=== PATIENT | male | born 1960 | race Two or more races ===

== ENCOUNTER 2022-01-25 18:51 | Emergency (ER) | payer SELFPAY ==
[~2022-01-25] VITALS: Ht 170.2 cm; Wt 120.0 kg
[2022-01-25 19:02] VITALS: BP 143/88
[2022-01-25] MEDS ORDERED: BACL5TAB2 PO (20:52)
[2022-01-25] MEDS ORDERED: KETOROLAC TROMETH 30 MG/ML 1ML VIAL IM ONE (21:00)
[2022-01-25] MEDS ORDERED: DexAMETHasone SOD PHOS 10MG/1ML VIAL INJ IM ONE (21:00)
[2022-01-25] MEDS ORDERED: GABA300C10 PO (21:01)
== END 2022-01-25 21:49 | disposition home or self-care (01) ==
LOC: ER 18:51
DX: M54.41 Lumbago with sciatica, right side (principal)
CPT/HCPCS: 96372; 99284; J1100; J1885

== ENCOUNTER 2023-10-23 13:07 | Inpatient (IN) | payer MEDICAID ==
[~2023-10-23] VITALS: Ht 167.6 cm; Wt 50.9 kg
[2023-10-23] MEDS: SODIUM CHLORIDE 0.9% 1,000 ML IV SCH (01:37)
[~2023-10-23 13:07] MED LIST: BACL5TAB2 PO; GABA-1250 PO
[2023-10-23 21:27] LABS: Basophils # (auto) 0.1 10 ^3/uL (0-0.2); Eosinophils # (auto) 0.7 10 ^3/uL (0-0.8); Hemoglobin 15.6 g/dL (13.5-17.5); Neutrophils # (auto) 5.8 10 ^3/uL (1.6-8.6)
[2023-10-23 21:30] LABS: Basophils % (auto) 0.7 % (0.0-2.0); Eosinophils % (auto) 6.4 % (0.0-7.0); Hematocrit 45.6 % (41.0-53.0); Lymphocytes % (auto) 28.6 % (10.0-50.0); Mean Corpuscular Hemoglobin 31.8 pg (28.0-32.0); Mean Corpuscular Hgb Conc. 34.1 g/dL (32.0-36.0); Mean Corpuscular Volume 93.2 fL (80.0-100.0); Monocytes % (auto) 9.5 % (0.0-12.0); Neutrophils % (auto) 54.8 % (37.0-80.0); Nucleated Red Blood Cells % 0.2 %; Red Blood Cells 4.89 10^6/uL (4.5-5.90); Red Cell Distribution Width 13.8 % (11.8-14.3); White Blood Cell 10.7 10^3/uL (4.4-10.8)
[2023-10-23] MEDS ORDERED: HYDROcodone-ACET 5/325MG TAB PO PRN (22:00)
[2023-10-23] MEDS ORDERED: MORPHINE SULFATE INJ 2 MG/ml SYRG IV PRN (22:00)
[2023-10-23] MEDS ORDERED: ONDANSETRON HCL 4 MG/2 ML VIAL IV PRN (22:00)
[2023-10-23] MEDS ORDERED: ACETAMINOPHEN 325 MG TAB PO PRN ×2 (22:00)
[2023-10-23 22:31] LABS: Alanine Aminotransferase 33 U/L (7-40); Albumin 4.1 g/dL (3.2-4.8); Alkaline Phosphatase 119 U/L (46-116); Anion Gap 4 (5-15); Aspartate Aminotransferase 40 U/L (13-40); Calcium 9.4 mg/dL (8.5-10.1); Carbon Dioxide 27 mmol/L (20-30); Chloride 105 mmol/L (98-107); Glucose 92 mg/dL (74-106); Potassium 4.5 mmol/L (3.5-5.1); Sodium 136 mmol/L (136-145)
[2023-10-23 22:32] LABS: Bilirubin, Total 0.7 mg/dL (0.2-1.0); Total Protein 7.5 g/dL (5.7-8.2)
[2023-10-23 22:37] LABS: Blood Urea Nitrogen < 5 mg/dL (9-23)
[2023-10-23 23:55] LABS: INR 0.95 (0.9-1.15); Partial Thromboplastin Time 27.6 SEC (24.5-34.5); Prothrombin Time 10.1 sec (9.3-11.8)
[2023-10-24] MEDS: NICOTINE 7MG/24HR TOPICAL PATCH TD ONE (01:46)
[2023-10-24 06:00] VITALS: O2SAT 95
[2023-10-24 07:00] LABS: Basophils # (auto) 0.1 10 ^3/uL (0-0.2); Basophils % (auto) 0.7 % (0.0-2.0); Eosinophils # (auto) 0.6 10 ^3/uL (0-0.8); Eosinophils % (auto) 5.4 % (0.0-7.0); Hemoglobin 15.5 g/dL (13.5-17.5); Lymphocytes # (auto) 2.5 10 ^3/uL (0.4-5.4); Lymphocytes % (auto) 23.5 % (10.0-50.0); Mean Corpuscular Hemoglobin 31.8 pg (28.0-32.0); Mean Corpuscular Hgb Conc. 33.6 g/dL (32.0-36.0); Mean Corpuscular Volume 94.5 fL (80.0-100.0); Monocytes % (auto) 9.8 % (0.0-12.0); Neutrophils # (auto) 6.4 10 ^3/uL (1.6-8.6); Neutrophils % (auto) 60.6 % (37.0-80.0); Nucleated Red Blood Cells % 0.1 %; Red Blood Cells 4.87 10^6/uL (4.5-5.90); White Blood Cell 10.6 10^3/uL (4.4-10.8)
[2023-10-24 07:14] LABS: Alanine Aminotransferase 30 U/L (7-40); Albumin 3.9 g/dL (3.2-4.8); Alkaline Phosphatase 120 U/L (46-116); Anion Gap 4 (5-15); Aspartate Aminotransferase 37 U/L (13-40); Calcium 9.2 mg/dL (8.5-10.1); Carbon Dioxide 28 mmol/L (20-30); Chloride 104 mmol/L (98-107); Glucose 96 mg/dL (74-106); Potassium 4.2 mmol/L (3.5-5.1); Sodium 136 mmol/L (136-145)
[2023-10-24 07:15] LABS: Bilirubin, Total 0.6 mg/dL (0.2-1.0); Total Protein 7.4 g/dL (5.7-8.2)
[2023-10-24 07:24] LABS: BUN/Creatinine Ratio 6.7 (10.0-20.0); Blood Urea Nitrogen < 5 mg/dL (9-23)
[2023-10-24] MEDS: ceFAZolin 1GM/50ML 50 ML IV ONE (07:43)
[2023-10-24] MEDS: LIDOCAINE W/ EPINEPHRINE 1% 20ML VIAL ONE (08:33)
[2023-10-24] MEDS ORDERED: SUGAMMADEX 200mg/2ml Vial (100MG/ML) IV ONE (08:53)
[2023-10-24] MEDS ORDERED: GLYCOPYRROLATE 0.2 MG/ML 1ML VIAL ONE (08:53)
[2023-10-24] MEDS ORDERED: LIDOCAINE 2% (LOCAL ANESTH.) PF 5ml SDV ONE (08:53)
[2023-10-24] MEDS ORDERED: PROPOFOL 10 MG/ML 20 ML IV ONE (08:53)
[2023-10-24] MEDS ORDERED: KETOROLAC TROMETH 30 MG/ML 1ML VIAL ONE (08:53)
[2023-10-24] MEDS ORDERED: ONDANSETRON HCL 4 MG/2 ML VIAL ONE (08:53)
[2023-10-24] MEDS ORDERED: DexAMETHasone SOD PHOS 10MG/1ML VIAL INJ ONE (08:53)
[2023-10-24] MEDS ORDERED: ROCURONIUM 10MG/ML 10ML VIAL IV ONE (08:53)
[2023-10-24] MEDS ORDERED: KETAMINE 50mg/ML 1ml syringe ONE (08:54)
[2023-10-24] MEDS ORDERED: fentaNYL CITRATE 100 MCG/2 ML VL ONE (08:54)
[2023-10-24 09:27] VITALS: PULSE 85; RESP 14; O2SAT 100
[2023-10-24] MEDS ORDERED: LABETALOL HCL 5 MG/ML 4ML SYRINGE IV PRN (09:45)
[2023-10-24] MEDS ORDERED: hydrALAZINE HCL 20 MG/ML VL IV PRN (09:45)
[2023-10-24] MEDS ORDERED: HYDROmorphone HCL 2 MG/ML VL/or syr IV PRN (09:45)
[2023-10-24] MEDS ORDERED: NALOXONE HCL 0.4 MG/ML VIAL IV PRN (09:45)
[2023-10-24] MEDS ORDERED: ePHEDrine SULFATE 50 MG/ML AMP IV PRN (09:45)
[2023-10-24] MEDS ORDERED: ONDANSETRON HCL 4 MG/2 ML VIAL IV PRN (09:45)
[2023-10-24] MEDS ORDERED: fentaNYL CITRATE 100 MCG/2 ML VL IV PRN (09:45)
[2023-10-24] MEDS ORDERED: FLUMAZENIL 0.1 MG/ML INJ 10ML MDV IV PRN (09:45)
[2023-10-24] MEDS: NICOTINE 7MG/24HR TOPICAL PATCH TD SCH (10:00)
[2023-10-24 17:00] VITALS: BP 126/71; PULSE 98; RESP 22; TEMP 98.2; O2SAT 96
[2023-10-24 18:22] VITALS: BP 117/83; PULSE 103; RESP 18; TEMP 97.7; O2SAT 96
[2023-10-24 21:00] VITALS: BP 126/75; PULSE 90; RESP 18; TEMP 97.5; O2SAT 97
[2023-10-25 05:00] VITALS: BP 136/85; PULSE 66; RESP 18; TEMP 98.2; O2SAT 99
[2023-10-25 08:00] VITALS: BP 126/77; PULSE 58; RESP 19; TEMP 98.1; O2SAT 99
[2023-10-25 08:52] VITALS: BP 126/77; PULSE 58; RESP 19; TEMP 98.1; O2SAT 99
[2023-10-25 13:00] VITALS: BP 137/74; PULSE 80; RESP 18; TEMP 97.9; O2SAT 97
[2023-10-25 15:24] VITALS: BP 137/74; PULSE 80; RESP 18; TEMP 97.9; O2SAT 97
== END 2023-10-25 16:00 | disposition home or self-care (01) | DRG 254 ==
LOC: ER 13:07 → OVERFLOW 22:07 → WEST WING 10-24 15:28
PROVIDERS: ADMIT Registered Nurse; ATTEND Nurse Practitioner Acute Care
PROC: 0DCP7ZZ Extirpation of Matter from Rectum, Via Natural or Artificial Opening (ICD-10-PCS; principal; 2023-10-24 08:57)
DX: T18.5XXA Foreign body in anus and rectum, initial encounter (principal); R64 Cachexia; F15.10 Other stimulant abuse, uncomplicated; F17.210 Nicotine dependence, cigarettes, uncomplicated; Z68.1 Body mass index [BMI] 19.9 or less, adult; Z59.02 Unsheltered homelessness; W44.8XXA Other foreign body entering into or through a natural orifice, initial encounter; Y93.89 Activity, other specified; Y92.89 Other specified places as the place of occurrence of the external cause; Y99.8 Other external cause status
CPT/HCPCS: 36415; 71045; 74018; 80053; 85025; 85610; 85730; 86850; 86900; 86901; 93306; G0378; J1100; J1885; J2001; J2405; J2704

== ENCOUNTER 2024-06-05 19:11 | Inpatient (IN) | payer MEDICAID ==
[~2024-06-05] VITALS: Ht 167.6 cm; Wt 52.2 kg
--- NOTE | 2024-06-05 20:15 | ED.PDOC ---
Musculoskeletal HPI Comments HPI: Poor Historian. 63-year-old male presents to emergency department for evaluation of right foot pain and swelling and oozing. Patient states that he had a trip and fall from a standing position on [place]. He landed on both knees. He has some minimal abrasion to bilateral knees. He said after the his right lower extremity [id number] started to develop redness and swelling and puffiness and pain with blistering and peeling of the skin and oozing of serosanguineous material. Pain is worse with ambulation. Patient admits to recent use of alcohol. Past Medcial History: Sciatica, Past Surgical History: Hernia repair, removal of foreign body in the rectum REVIEW OF SYSTEMS: CONSTITUTIONAL: Denies acute: fever, diaphoresis, chills, HEAD: Denies acute: headache, photophobia Eyes: Denies acute: Double vision, vision loss, eye pain, eye discharge. EARS: Denies acute: tinnitus, hearing loss, ear discharge, ear pain, THROAT: Denies acute: sore throat, swelling, difficulty swallowing , pain with swallowing, change in voice. NECK: Denies acute: neck pain, neck swelling, stiff neck. HEART: Denies acute : chest pain, palpitations, LUNGS: Denies acute: SOB, wheezing, cough, hemoptysis ABDOMEN: Denies acute: abdominal pain, Nausea, Vomiting, diarrhea, melena , hematemesis, hematochezia SKIN: Denies acute: itchiness. EXTREMITIES: Denies acute: calf pain, numbness, tingling, weakness, Denies acute: Low back pain. Neuro: Denies acute: focal neurological deficit, motor or sensory focal neurological deficit, tremors, seizure like activity, confusion, dizziness, change in mental status, loss of bowel or bladder function, cauda equina like symptoms. : Denies acute: dysuria, hematuria, flank pain, increase in urinary frequency. PSYCH: Denies acute: hallucination, suicidal ideation, homicidal ideation. PHYSICAL EXAM: General: no acute distress, awake and alert. Head: normocephalic, atraumatic. Neck: supple, trachea is midline, no swelling. Throat: Normal phonation. Eyes:, no erythema, no purulent discharge, no proptosis, no icterus. Heart: regular rate, regular rhythm, no significant murmur appreciated. Lungs: no apparent respiratory distress, Able to speak in full sentences. No wheezing, no rhonchi, no crackles. No stridors Clear to auscultation bilaterally. Abdomen: non tender to palpation, non distended, soft, no guarding, no rebound, + bowel sounds. Neuro: Awake, Alert, oriented to name, self, situation, follows commands GCS=15. Speech is normal. Skin: no petechia, no purpura, no cyanosis, non-pale, not jaundice. Lower extremities: -3/4 - Pitting edema no deformity, noted diffuse swelling [id number] and distally throughout his right lower extremity. There is tenderness to palpation. There is oozing and peeling of the skin. There is definitely erythema diffusely. Makes eye contact. moves all four extremities. Face: no apparent facial droop. Ambulating in the ED independently. Time Seen by MD: 20:10 Reviewed Notes: Nurses Notes, Allergies Allergies: Coded Allergies: NO KNOWN ALLERGIES (Unverified , 01/25/22) Home Meds Active Scripts Gabapentin (Gabapentin) 300 Mg Cap, 1 CAP PO TID PRN for 20 Days, #20 CAP 5 Refills Prov:DAWSON CAMARENA MD 01/25/22 Baclofen (Baclofen) 5 Mg Tab, 5 MG PO QHSP PRN for 20 Days, #20 TAB Prov:DAWSON CAMARENA MD 01/25/22 Information Source: Patient Location: Right Past Medical History PAST MEDICAL HISTORY: Denies Surgical History: Hernia Repair Family History Family History: Reviewed,noncontributory to illness, No family hx of Cancer, No family hx of DM, No family hx of Heart stephen, No family hx of HTN, No family hx ofKidney stephen, No family hx of Liver stephen, No family hx of Lung stephen, No family hx of Stroke Social History Smoker: Non-Smoker Alcohol: Denies ETOH Use Drugs: Methamphetamine Lives In: Home X-Ray, Labs, Meds, VS Vital Signs Date Time Temp Pulse Resp B/P (MAP) Pulse Ox O2 Delivery O2 Flow Rate FiO2 06/05/24 20:16 98.2 106 18 110/65 (80) 98 Lab Test 06/05/24 21:28 Range/Units White Blood Count 24.5 H 4.4-10.8 10^3/uL Red Blood Count 3.80 L 4.5-5.90 10^6/uL Hemoglobin 12.1 L 13.5-17.5 g/dL Hematocrit 35.4 L 41.0-53.0 % Mean Corpuscular Volume 93.3 80.0-100.0 fL Mean Corpuscular Hemoglobin 31.9 28.0-32.0 pg Mean Corpuscular Hemoglobin Concent 34.2 32.0-36.0 g/dL Red Cell Distribution Width 14.2 11.8-14.3 % Platelet Count 647 H 140-450 10^3/uL Mean Platelet Volume 7.3 6.9-10.8 fL Neutrophils (%) (Auto) 74.4 37.0-80.0 % Lymphocytes (%) (Auto) 16.1 10.0-50.0 % Monocytes (%) (Auto) 6.9 0.0-12.0 % Eosinophils (%) (Auto) 2.1 0.0-7.0 % Basophils (%) (Auto) 0.5 0.0-2.0 % Neutrophils # (Auto) 18.2 H 1.6-8.6 10 ^3/uL Lymphocytes # (Auto) 4.0 0.4-5.4 10 ^3/uL Monocytes # (Auto) 1.7 H 0-1.3 10 ^3/uL Eosinophils # (Auto) 0.5 0-0.8 10 ^3/uL Basophils # (Auto) 0.1 0-0.2 10 ^3/uL Nucleated Red Blood Cells 0.0 % Erythrocyte Sedimentation Rate 83 H 0-20 mm/hr Sodium Level 135 L 136-145 mmol/L Potassium Level 3.3 L 3.5-5.1 mmol/L Chloride Level 99 98-107 mmol/L Carbon Dioxide Level 29 20-31 mmol/L Anion Gap 7 5-15 Blood Urea Nitrogen 10 9-23 mg/dL Creatinine 0.75 0.700-1.30 mg/dL Glomerular Filtration Rate Calc 103 >90 mL/min BUN/Creatinine Ratio 13.3 10.0-20.0 Serum Glucose 112 H 74-106 mg/dL Lactic Acid Level 1.8 0.4-2.0 mmol/L Calcium Level 8.2 L 8.7-10.4 mg/dL Total Bilirubin 0.2 0.2-1.0 mg/dL Aspartate Amino Transferase (AST) 17 13-40 U/L Alanine Aminotransferase (ALT) 13 7-40 U/L Alkaline Phosphatase 128 H 46-116 U/L Troponin I High Sensitivity 3 L </=54 ng/L C-Reactive Protein High Sensitivity 13.50 H <1.0 mg/dL B-Type Natriuretic Peptide 73.84 0-100 pg/mL Total Protein 7.0 5.7-8.2 g/dL Albumin 3.1 L 3.2-4.8 g/dL RIGHT lower extremity venous duplex Clinical History: swelling Comparison: None Technique: Duplex Doppler evaluation of the deep venous systems of both lower extremities from the common femoral veins to the popliteal veins including color Doppler and spectral/pulsed waveform analysis was performed. Findings: RIGHT SIDE: The common femoral vein demonstrates appropriate compressibility and waveform variability. There is compressibility/patency of the great saphenous vein at the proximal thigh. The femoral vein demonstrates appropriate compressibility and waveform variability. The deep femoral vein demonstrates appropriate compressibility and waveform variability. The popliteal vein demonstrates appropriate compressibility and waveform variability. There is normal compressibility at the tibioperoneal trunk. Impression: 1. No right femoropopliteal venous thrombosis. 2. POSTERIOR TIBIAL VENOUS AREA NOT VISUALIZED DUE TO WOUND AND BANDAGING 3. LARGE LYMPH NODES IN THE RIGHT INGUINAL AREA MEASURING UP TO 2.7 CM 4. 3.3 CM AVASCULAR CYSTIC STRUCTURE IN THE RIGHT POPLITEAL REGION CONSISTENT WITH A ALVARADO'S CYST. Departure 1 Departure Time of Disposition: 22:00 Impression: Primary Impression: Cellulitis of right leg Additional Impressions: Leukocytosis Sepsis Disposition: ADMITTED INPATIENT Admit to: Tele Condition: Guarded Discharged With: Self I personally scribed for PRTAIK CANCHOLA DO ([email or web address]) on 06/06/24 at 01:20. Electronically submitted by Elias Ruffin ([email or web address]). PRATIK CANCHOLA DO Jun 05, 2024 20:15
[2024-06-05] MEDS ORDERED: VANCOMYCIN PER PHARMACY 0 MG IV SCH (20:30)
--- NOTE | 2024-06-05 21:22 | DVH ---
RIGHT lower extremity venous duplex Clinical History: swelling Comparison: None Technique: Duplex Doppler evaluation of the deep venous systems of both lower extremities from the common femora l veins to the popliteal veins including color Doppler and spectral/pulsed waveform analysis was perf ormed. Findings: RIGHT SIDE: The common femoral vein demonstrates appropriate compressibility and waveform variability. There is compressibility/patency of the great saphenous vein at the proximal thigh. The femoral vein demonstrates appropriate compressibility and waveform variability. The deep femoral vein demonstrates appropriate compressibility and waveform variability. The popliteal vein demonstrates appropriate compressibility and waveform variability. There is normal compressibility at the tibioperoneal trunk. Impression: 1. No right femoropopliteal venous thrombosis. 2. POSTERIOR TIBIAL VENOUS AREA NOT VISUALIZED DUE TO WOUND AND BANDAGING 3. LARGE LYMPH NODES IN THE RIGHT INGUINAL AREA MEASURING UP TO 2.7 CM 4. 3.3 CM AVASCULAR CYSTIC STRUCTURE IN THE RIGHT POPLITEAL REGION CONSISTENT WITH A ALVARADO'S CYST.
[2024-06-05 21:56] LABS: Basophils # (auto) 0.1 10 ^3/uL (0-0.2); Basophils % (auto) 0.5 % (0.0-2.0); Eosinophils # (auto) 0.5 10 ^3/uL (0-0.8); Eosinophils % (auto) 2.1 % (0.0-7.0); Hematocrit 35.4 % (41.0-53.0); Hemoglobin 12.1 g/dL (13.5-17.5); Lymphocytes % (auto) 16.1 % (10.0-50.0); Mean Corpuscular Hemoglobin 31.9 pg (28.0-32.0); Mean Corpuscular Hgb Conc. 34.2 g/dL (32.0-36.0); Mean Corpuscular Volume 93.3 fL (80.0-100.0); Monocytes # (auto) 1.7 10 ^3/uL (0-1.3); Monocytes % (auto) 6.9 % (0.0-12.0); Neutrophils # (auto) 18.2 10 ^3/uL (1.6-8.6); Neutrophils % (auto) 74.4 % (37.0-80.0); Platelet Count (auto) 647 10^3/uL (140-450); Red Cell Distribution Width 14.2 % (11.8-14.3); White Blood Cell 24.5 10^3/uL (4.4-10.8)
[2024-06-05 22:15] LABS: Alanine Aminotransferase 13 U/L (7-40); Anion Gap 7 (5-15); Aspartate Aminotransferase 17 U/L (13-40); BUN/Creatinine Ratio 13.3 (10.0-20.0); Blood Urea Nitrogen 10 mg/dL (9-23); Carbon Dioxide 29 mmol/L (20-31); Chloride 99 mmol/L (98-107)
[2024-06-05 22:23] LABS: Albumin 3.1 g/dL (3.2-4.8); Alkaline Phosphatase 128 U/L (46-116); Bilirubin, Total 0.2 mg/dL (0.2-1.0); Calcium 8.2 mg/dL (8.7-10.4); Glucose 112 mg/dL (74-106); Potassium 3.3 mmol/L (3.5-5.1); Sodium 135 mmol/L (136-145)
[2024-06-05 22:54] LABS: Erythrocyte Sedimentation Rate 83 mm/hr (0-20)
[2024-06-06] VITALS (8 sets, daily range): BP systolic 103–123; BP diastolic 51–69; PULSE 85–113; RESP 16–20; TEMP 97.6–98.4; O2SAT 94–98
[2024-06-06] MEDS: IOHEXOL 300 MG/ML 100ML BOTTLE IJ ONE (01:19)
[2024-06-06] MEDS: PIPERACILLIN-TAZOB 3.375GM 100 ML IV ONE (01:24)
--- NOTE | 2024-06-06 01:34 | DVH ---
Procedure: CT RT LOWER EXTREMITY W CON Reason for study/Clinical History: pain swelling infection Comparison Study: None available at time of dictation. CTA LOWER EXTREMITY RUNOFF WITH CONTRAST DATED 06/06/2024 12:43 AM Radiation Dose Information: CT Dose: CTDI volume is 8 mGy. Dose-length product is 505 mGy*cm TECHNIQUE: . 3D angiographic acquisitions of the right lower extremity was obtained during the intra venous administration of 140 cc of omnipaque without immediate adverse effect. Post processing, inclu ding maximum intensity projection, was performed images were reviewed on a PACS workstation. 3D postprocessing images were performed on a dedicated workstation and images were reviewed and inter preted for reporting. Findings/ IMPRESSION: No acute fracture or dislocation. Severe degenerative changes at the 1st metatarsophalangeal joint. Diffuse subcutaneous tissue fat stranding and soft tissue thickening from the level of the knee to th e dorsum of the foot. This is concerning for edema versus cellulitis. No focal fluid collection to suggest abscess. No abnormal enhancement. No obvious vascular abnormalities. No significant joint eff usions. All CT scans at this medical facility are performed using dose modulation techniques as appropriate t o a performed exam including the following: Automated exposure control was utilized; adjustment of th e MA and/or KV according to patient size; and use of iterative reconstruction technique.
[2024-06-06] MEDS ORDERED: DOCUSATE SOD 100 MG CAP PO PRN (03:00)
[2024-06-06] MEDS ORDERED: ONDANSETRON HCL 4 MG/2 ML VIAL IV PRN (03:00)
[2024-06-06] MEDS ORDERED: VANCOMYCIN PER PHARMACY 0 MG IV SCH (03:00)
[2024-06-06] MEDS: SODIUM CHLORIDE 0.9% 1,000 ML IV SCH (03:00)
[2024-06-06] MEDS ORDERED: ACETAMINOPHEN 325 MG TAB PO PRN (03:00)
[2024-06-06] MEDS: VANCOMYCIN 1GM/250ML KIT 250 ML IV ONE (03:20)
--- NOTE | 2024-06-06 03:59 | DVHHP2 ---
History of Present Illness Reason for Visit: Sepsis, unspecified organism History of Present Illness The patient is a 63-year-old male with past medical history of sciatica who presented to [facility] ED with complaint right foot pain and swelling. Patient reports he has been having increased right foot pain, oozing wound, fever, generalized weakness, had tripped and fall from standing position on May 27, 2024, landing bilateral knees, rating pain 7/10 numeric scale, getting worse that prompted this visit. Patient was seen and evaluated in the ED, laboratory data shows WBC 24.5, platelets 647, sodium 135, potassium 3.3, BUN 10, creatinine 0.75, GFR 103, glucose 112, calcium 8.2, ESR 83, CRP 13.50, BNP 73.84, blood pressure 109/52, heart rate 106, temperature 98.7 F, O2 saturation 98% on oxygen. Extremity venous study shows no right lower extremity venous thrombosis. Patient was started on IV antibiotic regimen vancomycin, ple ase see medication orders section in the computer. On my assessment, patient denies chest pain, no headache, no dizziness, no diaphoresis, no shortness of breath, no nausea, no vomiting, no fever, no chills. Patient was admitted for further evaluation and medical management. Past Medical History Sciatica, Past Surgical History Hernia repair Removal of foreign body in the rectum Family History Reviewed, noncontributory to the management of this case. Past Social History The patient lives at home, denies smoking, alcohol or illicit drugs abuse. Review of Systems Constitutional: Yes: Fever, Weakness; No: Chills, Sweats, Malaise, Other Eyes: No: Pain, Vision change, Conjunctivae inflammation, Eyelid inflammation, Other, Redness ENT: No: Ear pain, Ear discharge, Nose pain, Nose discharge, Nose congestion, Mouth pain, Mouth swelling, Throat pain, Throat swelling, Other Respiratory: No: Cough, Dry, Shortness of breath, SOB with excertion, Wheezing, Hemoptysis, Pleuritic Pain, Sputum, Wheezing, Other Cardiovascular: No: Chest Pain, Palpitations, Orthopnea, Paroxysmal Noc. Dyspnea, Edema, Lt Headedness, Other Gastrointestinal: No: Nausea, Vomiting, Abdominal Pain, Diarrhea, Constipation, Melena, Hematochezia, Other Genitourinary: No Dysuria, No Frequency, No Incontinence, No Hematuria, No Retention, No Other Musculoskeletal: No: other, neck pain, shoulder pain, arm pain, back pain, hand pain, leg pain, foot pain Skin: Other (Right lower extremity oozing wound); No: Rash, Lesions, Jaundice, Bruising Neurological: No: Weakness, Numbness, Incoordination, Change in speech, Confusion, Seizures, Other Allergies: Coded Allergies: NO KNOWN ALLERGIES (Unverified , 01/25/22) Medications Current Medications Medications Dose Ordered Sig/Beth Route Start Time Stop Time Status Last Admin Dose Admin Vancomycin HCl 0 ml @ 0 mls/hr UD IV 06/05/24 20:30 UNV Piperacillin Sod/ Tazobactam Sod 100 ml @ 25 mls/hr Q8HR IV 06/06/24 06:00 Sodium Chloride 1,000 ml @ 60 mls/hr [id number] IV 06/06/24 03:00 Acetaminophen/ Hydrocodone Bitart 1 tab Q4HP PRN PO 06/06/24 03:00 Ondansetron HCl 4 mg Q4HP PRN IV 06/06/24 03:00 Docusate Sodium 100 mg BIDPRN PRN PO 06/06/24 03:00 Enoxaparin Sodium 40 mg DAILY SC 06/06/24 10:00 Zinc Sulfate 220 mg DAILY PO 06/06/24 10:00 Ascorbic Acid 500 mg BID PO 06/06/24 10:00 Acetaminophen 650 mg Q6HP PRN PO 06/06/24 03:00 Morphine Sulfate 2 mg Q4HPRN PRN IV 06/06/24 03:00 Nitroglycerin 0.4 mg Q5MINP PRN SL 06/06/24 04:00 UNV Morphine Sulfate 2 mg Q30M PRN IV 06/06/24 04:00 UNV Exam Vital Signs Vital Signs Date Time Temp Pulse Resp B/P (MAP) Pulse Ox O2 Delivery O2 Flow Rate FiO2 06/06/24 01:44 98.7 113 18 136/39 (71) 98 98.7 06/06/24 01:17 Room Air* 0 21 General Appearance: Alert HEENT: EOMI, Mucous membr. moist/pink Respiratory: Clear to auscultation, Normal air movement Cardiovascular: Regular rate, Normal S1, Normal S2, No murmurs Abdominal: Normal bowel sounds, Soft, No tenderness, No hepatospenomegaly, No masses Extremities: No clubbing, No cyanosis, Normal pulses, Other (Right lower extremity swelling/tenderness) Skin: No rashes, No breakdown, No significant lesion Neuro: Normal speech, Normal tone, Sensation intact, Cranial nerves 3-12 NL, Reflexes 2+, Other (Generalized weakness) Psych/Mental Status: Mental status NL, Mood NL Labs/Xrays Labs Test 06/05/24 21:28 Range/Units White Blood Count 24.5 H 4.4-10.8 10^3/uL Red Blood Count 3.80 L 4.5-5.90 10^6/uL Hemoglobin 12.1 L 13.5-17.5 g/dL Hematocrit 35.4 L 41.0-53.0 % Mean Corpuscular Volume 93.3 80.0-100.0 fL Mean Corpuscular Hemoglobin 31.9 28.0-32.0 pg Mean Corpuscular Hemoglobin Concent 34.2 32.0-36.0 g/dL Red Cell Distribution Width 14.2 11.8-14.3 % Platelet Count 647 H 140-450 10^3/uL Mean Platelet Volume 7.3 6.9-10.8 fL Neutrophils (%) (Auto) 74.4 37.0-80.0 % Lymphocytes (%) (Auto) 16.1 10.0-50.0 % Monocytes (%) (Auto) 6.9 0.0-12.0 % Eosinophils (%) (Auto) 2.1 0.0-7.0 % Basophils (%) (Auto) 0.5 0.0-2.0 % Neutrophils # (Auto) 18.2 H 1.6-8.6 10 ^3/uL Lymphocytes # (Auto) 4.0 0.4-5.4 10 ^3/uL Monocytes # (Auto) 1.7 H 0-1.3 10 ^3/uL Eosinophils # (Auto) 0.5 0-0.8 10 ^3/uL Basophils # (Auto) 0.1 0-0.2 10 ^3/uL Nucleated Red Blood Cells 0.0 % Erythrocyte Sedimentation Rate 83 H 0-20 mm/hr Sodium Level 135 L 136-145 mmol/L Potassium Level 3.3 L 3.5-5.1 mmol/L Chloride Level 99 98-107 mmol/L Carbon Dioxide Level 29 20-31 mmol/L Anion Gap 7 5-15 Blood Urea Nitrogen 10 9-23 mg/dL Creatinine 0.75 0.700-1.30 mg/dL Glomerular Filtration Rate Calc 103 >90 mL/min BUN/Creatinine Ratio 13.3 10.0-20.0 Serum Glucose 112 H 74-106 mg/dL Lactic Acid Level 1.8 0.4-2.0 mmol/L Calcium Level 8.2 L 8.7-10.4 mg/dL Total Bilirubin 0.2 0.2-1.0 mg/dL Aspartate Amino Transferase (AST) 17 13-40 U/L Alanine Aminotransferase (ALT) 13 7-40 U/L Alkaline Phosphatase 128 H 46-116 U/L Troponin I High Sensitivity 3 L </=54 ng/L C-Reactive Protein High Sensitivity 13.50 H <1.0 mg/dL B-Type Natriuretic Peptide 73.84 0-100 pg/mL Total Protein 7.0 5.7-8.2 g/dL Albumin 3.1 L 3.2-4.8 g/dL PATIENT: KIKI NAVARRO ACCT: [id number] UNIT: [id number] : 1960 LOC: ER ROOM / BED: / AGE / SEX: 63 / M ADM STATUS: REG ER SERVICE 09 ORDERING PHYSICIAN: PRATIK CANCHOLA DO PROCEDURE(s): RLDVT - RT Lower DVT REASON: swelling ORDER NUMBER(s): [id number], ACCESSION NUMBER(s): [id number] RIGHT lower extremity venous duplex Clinical History: swelling Comparison: None Technique: Duplex Doppler evaluation of the deep venous systems of both lower extremities from the common femoral veins to the popliteal veins including color Doppler and spectral/pulsed waveform analysis was performed. Findings: RIGHT SIDE: The common femoral vein demonstrates appropriate compressibility and waveform variability. There is compressibility/patency of the great saphenous vein at the proximal thigh. The femoral vein demonstrates appropriate compressibility and waveform variability. The deep femoral vein demonstrates appropriate compressibility and waveform variability. The popliteal vein demonstrates appropriate compressibility and waveform variability. There is normal compressibility at the tibioperoneal trunk. Impression: 1. No right femoropopliteal venous thrombosis. 2. POSTERIOR TIBIAL VENOUS AREA NOT VISUALIZED DUE TO WOUND AND BANDAGING 3. LARGE LYMPH NODES IN THE RIGHT INGUINAL AREA MEASURING UP TO 2.7 CM 4. 3.3 CM AVASCULAR CYSTIC STRUCTURE IN THE RIGHT POPLITEAL REGION CONSISTENT WITH A ALVARADO'S CYST. ORDERING PHYSICIAN: PRATIK CANCHOLA DO PROCEDURE(s): RTLEXW - RT LOWER EXTREMITY W CON REASON: pain swelling infection ORDER NUMBER(s): [id number], ACCESSION NUMBER(s): [id number] Procedure: CT RT LOWER EXTREMITY W CON Reason for study/Clinical History: pain swelling infection Comparison Study: None available at time of dictation. CTA LOWER EXTREMITY RUNOFF WITH CONTRAST DATED 06/06/2024 12:43 AM Radiation Dose Information: CT Dose: CTDI volume is 8 mGy. Dose-length product is 505 mGy*cm TECHNIQUE: 3D angiographic acquisitions of the right lower extremity was obtained during the intravenous administration of 140 cc of omnipaque without immediate adverse effect. Post processing, including maximum intensity projection, was performed images were reviewed on a PACS workstation. 3 postprocessing images were performed on a dedicated workstation and images were reviewed and interpreted for reporting. Findings/ IMPRESSION: No acute fracture or dislocation. Severe degenerative changes at the 1st metatarsophalangeal joint. Diffuse subcutaneous tissue fat stranding and soft tissue thickening from the level of the knee to the dorsum of the foot. This is concerning for edema versus cellulitis. No focal fluid collection to suggest abscess. No abnormal enhancement. No obvious vascular abnormalities. No significant joint effusions. Assessment/Plan Assessment/Plan Cellulitis of right leg Hypokalemia Leukocytosis, unspecified Generalized weakness Sepsis, unspecified organisms Plan 1. Admit to med surge unit 2. Breathing treatment 3. Pain control management 4. IV antibiotic management 5. Management of fluids and electrolytes 6. Consultation for hospitalist/wound care 7. Diagnostic test extremity venous study 8. DVT prophylaxis-on Lovenox 9. Repeat labs CBC, CMP in a.m. 10. Home medication reviewed and reconciled 11. Continue with current medical management 12. Treatment plan discussed with patient and RN. Patient verbalized understanding. Plan discussed with: Patient, Other (RN) My Orders Orders - MARCUS COE DNP Procedure Category Date Status Time Piperacillin-Tazob PHA 06/06/24 In Process 3.375gm (Zosyn 3.375g 06:00 Complete Blood Count LAB 06/06/24 Logged 04:00 Comprehensive LAB 06/06/24 Logged Metabolic Panel 04:00 Allergies AFSHAN 06/06/24 In Process 02:51 Code Status CODE 06/06/24 Transmitted 02:51 Sodium Chloride 0.9% PHA 06/06/24 In Process 03:00 Oxygen Per Hour RT 06/06/24 Transmitted 02:51 Hydrocodone-Acet PHA 06/06/24 In Process 5/325mg Tab ([facility] 03:00 Ondansetron Hcl PHA 06/06/24 In Process (Zofran) 03:00 Docusate Sodium PHA 06/06/24 In Process Capsule (Colace 03:00 Enoxaparin Sodium PHA 06/06/24 In Process (Lovenox) 10:00 Zinc Sulfate PHA 06/06/24 In Process 10:00 Ascorbic Acid Tablet PHA 06/06/24 In Process (Vitamin C Tablet) 10:00 Complete Blood Count LAB 06/07/24 Verified 04:00 Comprehensive LAB 06/07/24 Verified Metabolic Panel 04:00 Cardiac DIET 06/06/24 Transmitted Diet-2gna,Lofat,Lochol Breakfast Condition: Serious AFSHAN 06/06/24 In Process 02:51 Acetaminophen Tablet PHA 06/06/24 In Process (Tylenol Tablet) 03:00 Bedrest With Bathroom AFSHAN 06/06/24 In Process Privileg 02:51 Morphine Sulfate [facility] 06/06/24 In Process Injection 03:00 Sequential [facility] 06/06/24 In Process Compression Device Admit ADMIT 06/06/24 Transmitted 03:52 Nitroglycerin PHA 06/06/24 Logged Sublingual (Ntrostat 04:00 Morphine Sulfate PHA 06/06/24 Logged Injection 04:00 Notify Of Changes [facility] 06/06/24 In Process From Base 03:52 Clothing Pattern Preparer For [facility] 06/06/24 In Process 24 Hours 03:52 Emergency Dysrhythmia [facility] 06/06/24 In Process Protocol 03:52 Rhythm Strips Once [facility] 06/06/24 In Process Every Shift 03:52 Oxygen By Nasal RT 06/06/24 Transmitted Cannula 03:52 Potassium Er Tablet PHA 06/06/24 Logged (Klor-Con Tablet) 04:00 Problem List: (1) Cellulitis of right leg (2) Sepsis, unspecified organism (3) Hypokalemia (4) Leukocytosis, unspecified (5) Generalized weakness Date of Service: Jun 06, 2024 Billing Provider: MARCUS COE DNP Common Visit Codes: [id number] INP/OBS CARE (HIGH) MARCUS COE DNP Jun 06, 2024 03:59
[2024-06-06] MEDS ORDERED: NITROGLYCERIN 0.4 MG SL TAB SL PRN (04:00)
[2024-06-06] MEDS ORDERED: MORPHINE SULFATE INJ 2 MG/ml SYRG IV PRN (04:00)
[2024-06-06] MEDS: POTASSIUM CHL 20 Meq TABLET PO ONE (04:35)
[2024-06-06] MEDS: PIPERACILLIN-TAZOB 3.375GM 100 ML IV SCH (06:00)
[2024-06-06 06:28] LABS: Red Cell Distribution Width 14.6 % (11.8-14.3)
[2024-06-06 06:32] LABS: Basophils # (auto) 0.1 10 ^3/uL (0-0.2); Basophils % (auto) 0.5 % (0.0-2.0); Eosinophils # (auto) 0.3 10 ^3/uL (0-0.8); Eosinophils % (auto) 1.4 % (0.0-7.0); Hematocrit 35.3 % (41.0-53.0); Lymphocytes # (auto) 2.8 10 ^3/uL (0.4-5.4); Lymphocytes % (auto) 12.2 % (10.0-50.0); Mean Corpuscular Hemoglobin 31.3 pg (28.0-32.0); Mean Corpuscular Hgb Conc. 34.1 g/dL (32.0-36.0); Mean Corpuscular Volume 91.8 fL (80.0-100.0); Monocytes # (auto) 2.1 10 ^3/uL (0-1.3); Monocytes % (auto) 9.2 % (0.0-12.0); Neutrophils # (auto) 17.7 10 ^3/uL (1.6-8.6); Neutrophils % (auto) 76.7 % (37.0-80.0); Nucleated Red Blood Cells % 0.1 %; Platelet Count (auto) 717 10^3/uL (140-450); Red Blood Cells 3.85 10^6/uL (4.5-5.90); White Blood Cell 23.1 10^3/uL (4.4-10.8)
[2024-06-06 06:39] LABS: Alanine Aminotransferase 14 U/L (7-40)
[2024-06-06 06:40] LABS: Albumin 3.2 g/dL (3.2-4.8); Anion Gap 5 (5-15); Aspartate Aminotransferase 14 U/L (13-40); BUN/Creatinine Ratio 8.8 (10.0-20.0); Carbon Dioxide 30 mmol/L (20-31); Potassium 3.9 mmol/L (3.5-5.1); Total Protein 7.2 g/dL (5.7-8.2)
[2024-06-06 06:43] LABS: Chloride 97 mmol/L (98-107); Glucose 116 mg/dL (74-106); Sodium 132 mmol/L (136-145)
[2024-06-06 06:44] LABS: Alkaline Phosphatase 126 U/L (46-116); Bilirubin, Total 0.2 mg/dL (0.2-1.0); Blood Urea Nitrogen 7 mg/dL (9-23); Calcium 8.1 mg/dL (8.7-10.4)
[2024-06-06] MEDS: ZINC SULFATE 220mg CAP or TAB PO SCH (09:38)
[2024-06-06] MEDS: ASCORBIC ACID 500 MG TAB PO SCH (09:38)
[2024-06-06] MEDS: ENOXAPARIN SOD 40 MG/0.4 ML SYRINGE SC SCH (09:38)
[2024-06-06] MEDS: HYDROcodone-ACET 5/325MG TAB PO PRN (10:28)
[2024-06-06] MEDS: VANCOMYCIN 1.25GM/250ML 250 ML IV SCH (10:28)
--- NOTE | 2024-06-06 12:43 | DVHPN2 ---
Reviewed: Care Plan, H&P, Labs, Medications, Previous Orders, Radiology Changes from previous H/P or p: No Changes Eyes: No Pain, No Vision change, No Conjunctivae inflammation, No Eyelid inflammation, No Other, No Redness ENT: No Ear pain, No Ear discharge, No Nose pain, No Nose discharge, No Nose congestion, No Mouth pain, No Mouth swelling, No Throat pain, No Throat swelling, No Other Cardiovascular: No Chest Pain, No Palpitations, No Orthopnea, No Paroxysmal Noc. Dyspnea, No Edema, No Lt Headedness, No Other Respiratory: No Cough, No Dry, No Shortness of breath, No SOB with excertion, No Wheezing, No Hemoptysis, No Pleuritic Pain, No Sputum, No Other Gastrointestinal: No Nausea, No Vomiting, No Abdominal Pain, No Diarrhea, No Constipation, No Melena, No Hematochezia, No Other Genitourinary: No Dysuria, No Frequency, No Incontinence, No Hematuria, No Retention, No Other Musculoskeletal: No other, No neck pain, No shoulder pain, No arm pain, No back pain, No hand pain, No leg pain, No foot pain Skin: No Rash, No Lesions, No Jaundice, No Bruising; Other (Right lower extremity oozing wound) Objective Vitals Vital Signs Date Time Temp Pulse Resp B/P (MAP) Pulse Ox O2 Delivery O2 Flow Rate FiO2 06/06/24 07:38 Room Air* 0 21 06/06/24 07:37 97.9 95 20 103/56 (72) 95 97.9 Intake/Output Intake and Output 06/06/24 07:00 Intake Total 350 ml Balance 350 ml Intake IV Total 350 ml Medications Current Medications Medications Dose Ordered Sig/Beth Route Start Time Stop Time Status Last Admin Dose Admin Vancomycin HCl 0 ml @ 0 mls/hr UD IV 06/05/24 20:30 Piperacillin Sod/ Tazobactam Sod 100 ml @ 25 mls/hr Q8HR IV 06/06/24 06:00 Sodium Chloride 1,000 ml @ 60 mls/hr [id number] IV 06/06/24 03:00 Acetaminophen/ Hydrocodone Bitart 1 tab Q4HP PRN PO 06/06/24 03:00 06/06/24 10:28 1 TAB Ondansetron HCl 4 mg Q4HP PRN IV 06/06/24 03:00 Docusate Sodium 100 mg BIDPRN PRN PO 06/06/24 03:00 Enoxaparin Sodium 40 mg DAILY SC 06/06/24 10:00 06/06/24 09:38 40 MG Zinc Sulfate 220 mg DAILY PO 06/06/24 10:00 06/06/24 09:38 220 MG Ascorbic Acid 500 mg BID PO 06/06/24 10:00 06/06/24 09:38 500 MG Acetaminophen 650 mg Q6HP PRN PO 06/06/24 03:00 Morphine Sulfate 2 mg Q4HPRN PRN IV 06/06/24 03:00 Nitroglycerin 0.4 mg Q5MINP PRN SL 06/06/24 04:00 Morphine Sulfate 2 mg Q30M PRN IV 06/06/24 04:00 Vancomycin HCl 250 ml @ 200 mls/hr Q12H IV 06/06/24 11:00 06/06/24 10:28 200 MLS/HR Laboratory Results Laboratory Tests 06/06/24 05:56 Chemistry Test 06/05/24 21:28 06/06/24 05:56 Albumin 3.1 g/dL (3.2-4.8) L 3.2 g/dL (3.2-4.8) Calcium Level 8.2 mg/dL (8.7-10.4) L 8.1 mg/dL (8.7-10.4) L Total Protein 7.0 g/dL (5.7-8.2) 7.2 g/dL (5.7-8.2) Cardiac Markers Test 06/05/24 21:28 B-Type Natriuretic Peptide 73.84 pg/mL (0-100) LFT Test 06/05/24 21:28 06/06/24 05:56 Alanine Aminotransferase (ALT) 13 U/L (7-40) 14 U/L (7-40) Alkaline Phosphatase 128 U/L (46-116) H 126 U/L (46-116) H Aspartate Amino Transferase (AST) 17 U/L (13-40) 14 U/L (13-40) Total Bilirubin 0.2 mg/dL (0.2-1.0) 0.2 mg/dL (0.2-1.0) Labs and/or images reviewed: Labs reviewed by me, Image(s) reviewed by me Assessment/Plan Assessment/Plan Cellulitis right lower extremity: Vancomycin and Zosyn, wound cultures wound consult blood cultures pain medications History of sciatica History of fall 10 days ago Homeless Plan discussed with: Patient Date of Service: Jun 06, 2024 Billing Provider: CLYDE VALDEZ MD Common Visit Codes: [id number] INP/OBS CARE(HIGH) CLYDE VALDEZ MD Jun 06, 2024 12:43
--- NOTE | 2024-06-06 13:57 | DVH ---
BILATERAL Lower Extremity Arterial Duplex Date: 06/06/2024 12:49 PM Clinical History: Nonhealing right leg wound Comparison: None Technique: Duplex Doppler evaluation including color Doppler and spectral/pulsed waveform analysis of the lower extremity arteries was performed. Right velocities and waveforms within normal limits. Posterior tibial artery and dorsalis pedal haider ry not visualized due to bandage. IMPRESSION: There is no evidence for peripheral vascular insufficiency in the right lower extremity. No significant focal stenosis is identified.
[2024-06-07] VITALS (8 sets, daily range): BP systolic 105–127; BP diastolic 53–70; PULSE 66–92; RESP 16–20; TEMP 97.8–99.6; O2SAT 94–98
[2024-06-07] MEDS: MORPHINE SULFATE INJ 2 MG/ml SYRG IV PRN (01:16)
[2024-06-07 08:40] LABS: Hematocrit 31.5 % (41.0-53.0); Monocytes # (auto) 1.5 10 ^3/uL (0-1.3); Monocytes % (auto) 7.2 % (0.0-12.0)
[2024-06-07 08:42] LABS: Basophils # (auto) 0.1 10 ^3/uL (0-0.2); Basophils % (auto) 0.6 % (0.0-2.0); Eosinophils # (auto) 0.4 10 ^3/uL (0-0.8); Hemoglobin 10.5 g/dL (13.5-17.5); Lymphocytes % (auto) 14.4 % (10.0-50.0); Mean Corpuscular Hgb Conc. 33.4 g/dL (32.0-36.0); Mean Corpuscular Volume 92.7 fL (80.0-100.0); Neutrophils # (auto) 15.7 10 ^3/uL (1.6-8.6); Neutrophils % (auto) 75.8 % (37.0-80.0); Platelet Count (auto) 678 10^3/uL (140-450); Red Cell Distribution Width 14.7 % (11.8-14.3); White Blood Cell 20.7 10^3/uL (4.4-10.8)
[2024-06-07 10:22] LABS: Alkaline Phosphatase 105 U/L (46-116); Anion Gap 5 (5-15); Aspartate Aminotransferase 15 U/L (13-40); BUN/Creatinine Ratio 14.3 (10.0-20.0); Bilirubin, Total 0.3 mg/dL (0.2-1.0); Blood Urea Nitrogen 11 mg/dL (9-23); Carbon Dioxide 26 mmol/L (20-31); Chloride 104 mmol/L (98-107); Potassium 4.4 mmol/L (3.5-5.1); Total Protein 6.1 g/dL (5.7-8.2)
--- NOTE | 2024-06-07 10:23 | DVHPN2 ---
Reviewed: Care Plan, H&P, Labs, Medications, Previous Orders, Radiology Changes from previous H/P or p: No Changes Eyes: No Pain, No Vision change, No Conjunctivae inflammation, No Eyelid inflammation, No Other, No Redness ENT: No Ear pain, No Ear discharge, No Nose pain, No Nose discharge, No Nose congestion, No Mouth pain, No Mouth swelling, No Throat pain, No Throat swelling, No Other Cardiovascular: No Chest Pain, No Palpitations, No Orthopnea, No Paroxysmal Noc. Dyspnea, No Edema, No Lt Headedness, No Other Respiratory: No Cough, No Dry, No Shortness of breath, No SOB with excertion, No Wheezing, No Hemoptysis, No Pleuritic Pain, No Sputum, No Other Gastrointestinal: No Nausea, No Vomiting, No Abdominal Pain, No Diarrhea, No Constipation, No Melena, No Hematochezia, No Other Genitourinary: No Dysuria, No Frequency, No Incontinence, No Hematuria, No Retention, No Other Musculoskeletal: No other, No neck pain, No shoulder pain, No arm pain, No back pain, No hand pain, No leg pain, No foot pain Skin: No Rash, No Lesions, No Jaundice, No Bruising; Other (Right lower extremity oozing wound) Objective Vitals Vital Signs Date Time Temp Pulse Resp B/P (MAP) Pulse Ox O2 Delivery O2 Flow Rate FiO2 06/07/24 09:00 99.6 87 16 114/62 (79) 94 99.6 06/06/24 20:00 Room Air* 0 21 Intake/Output Intake and Output 06/07/24 07:00 Intake Total 2180 ml Output Total 2700 ml Balance -520 ml Intake Oral 1480 ml IV Total 700 ml Output Urine Total 2700 ml # Voids 4 Medications Current Medications Medications Dose Ordered Sig/Beth Route Start Time Stop Time Status Last Admin Dose Admin Vancomycin HCl 0 ml @ 0 mls/hr UD IV 06/05/24 20:30 Piperacillin Sod/ Tazobactam Sod 100 ml @ 25 mls/hr Q8HR IV 06/06/24 06:00 06/07/24 05:23 25 MLS/HR Sodium Chloride 1,000 ml @ 60 mls/hr [id number] IV 06/06/24 03:00 Acetaminophen/ Hydrocodone Bitart 1 tab Q4HP PRN PO 06/06/24 03:00 06/06/24 18:37 1 TAB Ondansetron HCl 4 mg Q4HP PRN IV 06/06/24 03:00 Docusate Sodium 100 mg BIDPRN PRN PO 06/06/24 03:00 Enoxaparin Sodium 40 mg DAILY SC 06/06/24 10:00 06/06/24 09:38 40 MG Zinc Sulfate 220 mg DAILY PO 06/06/24 10:00 06/07/24 08:37 220 MG Ascorbic Acid 500 mg BID PO 06/06/24 10:00 06/07/24 08:37 500 MG Acetaminophen 650 mg Q6HP PRN PO 06/06/24 03:00 Morphine Sulfate 2 mg Q4HPRN PRN IV 06/06/24 03:00 06/07/24 08:47 2 MG Nitroglycerin 0.4 mg Q5MINP PRN SL 06/06/24 04:00 Morphine Sulfate 2 mg Q30M PRN IV 06/06/24 04:00 Vancomycin HCl 250 ml @ 200 mls/hr Q12H IV 06/06/24 11:00 06/06/24 23:16 200 MLS/HR Laboratory Results Laboratory Tests 06/07/24 07:08 Chemistry Test 06/07/24 07:08 Albumin Pending Calcium Level Pending Total Protein Pending LFT Test 06/07/24 07:08 Alanine Aminotransferase (ALT) Pending Alkaline Phosphatase Pending Aspartate Amino Transferase (AST) Pending Total Bilirubin Pending Microbiology Microbiology Date/Time Source Procedure Growth Status 06/05/24 21:28 Blood Blood Culture - Preliminary NO GROWTH AFTER 24 HOURS OF INCUBATION. 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
[2024-06-07 10:25] LABS: Alanine Aminotransferase 9 U/L (7-40); Albumin 2.7 g/dL (3.2-4.8); Calcium 7.8 mg/dL (8.7-10.4); Glucose 110 mg/dL (74-106); Sodium 135 mmol/L (136-145)
[2024-06-08] VITALS (8 sets, daily range): BP systolic 109–131; BP diastolic 56–71; PULSE 81–94; RESP 17–20; TEMP 97.9–98.7; O2SAT 93–98
--- NOTE | 2024-06-08 10:53 | DVHPN2 ---
Reviewed: Care Plan, H&P, Labs, Medications, Previous Orders, Radiology Changes from previous H/P or p: No Changes Eyes: No Pain, No Vision change, No Conjunctivae inflammation, No Eyelid inflammation, No Other, No Redness ENT: No Ear pain, No Ear discharge, No Nose pain, No Nose discharge, No Nose congestion, No Mouth pain, No Mouth swelling, No Throat pain, No Throat swelling, No Other Cardiovascular: No Chest Pain, No Palpitations, No Orthopnea, No Paroxysmal Noc. Dyspnea, No Edema, No Lt Headedness, No Other Respiratory: No Cough, No Dry, No Shortness of breath, No SOB with excertion, No Wheezing, No Hemoptysis, No Pleuritic Pain, No Sputum, No Other Gastrointestinal: No Nausea, No Vomiting, No Abdominal Pain, No Diarrhea, No Constipation, No Melena, No Hematochezia, No Other Genitourinary: No Dysuria, No Frequency, No Incontinence, No Hematuria, No Retention, No Other Musculoskeletal: No other, No neck pain, No shoulder pain, No arm pain, No back pain, No hand pain, No leg pain, No foot pain Skin: No Rash, No Lesions, No Jaundice, No Bruising; Other (Right lower extremity oozing wound) Objective Vitals Vital Signs Date Time Temp Pulse Resp B/P (MAP) Pulse Ox O2 Delivery O2 Flow Rate FiO2 06/08/24 09:00 98.3 83 19 126/71 (89) 93 98.3 06/07/24 20:00 Room Air* 0 21 Intake/Output Intake and Output 06/08/24 07:00 Intake Total 2190 ml Output Total 2805 ml Balance -615 ml Intake Oral 1390 ml IV Total 800 ml Output Urine Total 2805 ml # Voids 10 # Bowel Movements 1 Medications Current Medications Medications Dose Ordered Sig/Beth Route Start Time Stop Time Status Last Admin Dose Admin Vancomycin HCl 0 ml @ 0 mls/hr UD IV 06/05/24 20:30 Piperacillin Sod/ Tazobactam Sod 100 ml @ 25 mls/hr Q8HR IV 06/06/24 06:00 06/08/24 05:50 25 MLS/HR Sodium Chloride 1,000 ml @ 60 mls/hr [id number] IV 06/06/24 03:00 Acetaminophen/ Hydrocodone Bitart 1 tab Q4HP PRN PO 06/06/24 03:00 06/08/24 10:08 1 TAB Ondansetron HCl 4 mg Q4HP PRN IV 06/06/24 03:00 Docusate Sodium 100 mg BIDPRN PRN PO 06/06/24 03:00 Enoxaparin Sodium 40 mg DAILY SC 06/06/24 10:00 06/08/24 10:02 40 MG Zinc Sulfate 220 mg DAILY PO 06/06/24 10:00 06/08/24 10:01 220 MG Ascorbic Acid 500 mg BID PO 06/06/24 10:00 06/08/24 10:01 500 MG Acetaminophen 650 mg Q6HP PRN PO 06/06/24 03:00 Morphine Sulfate 2 mg Q4HPRN PRN IV 06/06/24 03:00 06/08/24 06:43 2 MG Nitroglycerin 0.4 mg Q5MINP PRN SL 06/06/24 04:00 Morphine Sulfate 2 mg Q30M PRN IV 06/06/24 04:00 Vancomycin HCl 250 ml @ 200 mls/hr Q12H IV 06/06/24 11:00 06/07/24 23:33 200 MLS/HR Laboratory Results Laboratory Tests 06/07/24 07:08 06/08/24 06:22 Microbiology Microbiology Date/Time Source Procedure Growth Status 06/06/24 11:32 Leg Right Gram Stain Pending Resulted 06/06/24 11:32 Leg Right Wound Culture - Preliminary Resulted 06/05/24 21:28 Blood Blood Culture - Preliminary NO GROWTH AFTER 48 HOURS OF INCUBATION. Resulted Labs and/or images reviewed: Labs reviewed by me, Image(s) reviewed by me Assessment/Plan Assessment/Plan Sepsis secondary to cellulitis of the right lower extremity Severe Cellulitis right lower extremity: Wound cultures growing group A strep, , DC vancomycin, DC Zosyn, start ampicillin 2 g IV q.6 hours Blood cultures negative pain medications History of sciatica History of fall 10 days ago: CT right lower extremity negative for any fracture DVT ruled out Peripheral arterial disease ruled out Homeless Physical therapy ordered Plan discussed with: Patient Date of Service: Jun 08, 2024 Billing Provider: CLYDE VALDEZ MD Common Visit Codes: [id number] INP/OBS CARE(HIGH) CLYDE VALDEZ MD Jun 08, 2024 10:53
[2024-06-08] MEDS: AMPICILLIN SOD 2GM INJ 2 GM in SODIUM CHL 0.9% 100 ML IV SCH (12:30)
[2024-06-09] VITALS (8 sets, daily range): BP systolic 111–137; BP diastolic 53–69; PULSE 85–96; RESP 18–20; TEMP 98–99.1; O2SAT 92–97
[2024-06-09] MEDS: AMPICILLIN SOD 2GM INJ 2 GM in SODIUM CHL 0.9% 100 ML IV SCH (09:03)
--- NOTE | 2024-06-09 11:22 | DVHPN2 ---
Reviewed: Care Plan, H&P, Labs, Medications, Previous Orders, Radiology Changes from previous H/P or p: No Changes Eyes: No Pain, No Vision change, No Conjunctivae inflammation, No Eyelid inflammation, No Other, No Redness ENT: No Ear pain, No Ear discharge, No Nose pain, No Nose discharge, No Nose congestion, No Mouth pain, No Mouth swelling, No Throat pain, No Throat swelling, No Other Cardiovascular: No Chest Pain, No Palpitations, No Orthopnea, No Paroxysmal Noc. Dyspnea, No Edema, No Lt Headedness, No Other Respiratory: No Cough, No Dry, No Shortness of breath, No SOB with excertion, No Wheezing, No Hemoptysis, No Pleuritic Pain, No Sputum, No Other Gastrointestinal: No Nausea, No Vomiting, No Abdominal Pain, No Diarrhea, No Constipation, No Melena, No Hematochezia, No Other Genitourinary: No Dysuria, No Frequency, No Incontinence, No Hematuria, No Retention, No Other Musculoskeletal: No other, No neck pain, No shoulder pain, No arm pain, No back pain, No hand pain, No leg pain, No foot pain Skin: No Rash, No Lesions, No Jaundice, No Bruising; Other (Right lower extremity oozing wound) Objective Vitals Vital Signs Date Time Temp Pulse Resp B/P (MAP) Pulse Ox O2 Delivery O2 Flow Rate FiO2 06/09/24 09:00 98.0 88 19 111/53 (72) 95 98.0 06/09/24 08:00 Room Air* 0 21 Intake/Output Intake and Output 06/09/24 07:00 Intake Total 2890 ml Output Total 1200 ml Balance 1690 ml Intake Oral 1750 ml IV Total 1140 ml Output Urine Total 1200 ml # Voids 6 # Bowel Movements 1 Medications Current Medications Medications Dose Ordered Sig/Beth Route Start Time Stop Time Status Last Admin Dose Admin Sodium Chloride 1,000 ml @ 60 mls/hr [id number] IV 06/06/24 03:00 06/08/24 22:19 60 MLS/HR Acetaminophen/ Hydrocodone Bitart 1 tab Q4HP PRN PO 06/06/24 03:00 06/08/24 22:18 1 TAB Ondansetron HCl 4 mg Q4HP PRN IV 06/06/24 03:00 Docusate Sodium 100 mg BIDPRN PRN PO 06/06/24 03:00 Enoxaparin Sodium 40 mg DAILY SC 06/06/24 10:00 06/09/24 09:04 40 MG Zinc Sulfate 220 mg DAILY PO 06/06/24 10:00 06/09/24 09:04 220 MG Ascorbic Acid 500 mg BID PO 06/06/24 10:00 06/09/24 09:04 500 MG Acetaminophen 650 mg Q6HP PRN PO 06/06/24 03:00 Morphine Sulfate 2 mg Q4HPRN PRN IV 06/06/24 03:00 06/09/24 05:37 2 MG Nitroglycerin 0.4 mg Q5MINP PRN SL 06/06/24 04:00 Morphine Sulfate 2 mg Q30M PRN IV 06/06/24 04:00 Ampicillin Sodium 2 gm/Sodium Chloride 100 ml @ 100 mls/hr Q6H IV 06/09/24 08:00 06/09/24 09:03 100 MLS/HR Laboratory Results Laboratory Tests 06/07/24 07:08 06/08/24 06:22 Microbiology Microbiology Date/Time Source Procedure Growth Status 06/06/24 11:32 Leg Right Gram Stain - Final Resulted 06/06/24 11:32 Leg Right Wound Culture - Preliminary Resulted 06/05/24 21:28 Blood Blood Culture - Preliminary NO GROWTH AFTER 72 HOURS OF INCUBATION. 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
[2024-06-10] VITALS (8 sets, daily range): BP systolic 105–117; BP diastolic 51–64; PULSE 79–87; RESP 16–20; TEMP 98.4–98.8; O2SAT 92–97
--- NOTE | 2024-06-10 10:36 | DVHPN2 ---
Reviewed: Care Plan, H&P, Labs, Medications, Previous Orders, Radiology Changes from previous H/P or p: No Changes Eyes: No Pain, No Vision change, No Conjunctivae inflammation, No Eyelid inflammation, No Other, No Redness ENT: No Ear pain, No Ear discharge, No Nose pain, No Nose discharge, No Nose congestion, No Mouth pain, No Mouth swelling, No Throat pain, No Throat swelling, No Other Cardiovascular: No Chest Pain, No Palpitations, No Orthopnea, No Paroxysmal Noc. Dyspnea, No Edema, No Lt Headedness, No Other Respiratory: No Cough, No Dry, No Shortness of breath, No SOB with excertion, No Wheezing, No Hemoptysis, No Pleuritic Pain, No Sputum, No Other Gastrointestinal: No Nausea, No Vomiting, No Abdominal Pain, No Diarrhea, No Constipation, No Melena, No Hematochezia, No Other Genitourinary: No Dysuria, No Frequency, No Incontinence, No Hematuria, No Retention, No Other Musculoskeletal: No other, No neck pain, No shoulder pain, No arm pain, No back pain, No hand pain, No leg pain, No foot pain Skin: No Rash, No Lesions, No Jaundice, No Bruising; Other (Right lower extremity oozing wound) Objective Vitals Vital Signs Date Time Temp Pulse Resp B/P (MAP) Pulse Ox O2 Delivery O2 Flow Rate FiO2 06/10/24 09:00 98.4 83 20 108/64 (79) 93 98.4 06/09/24 20:00 Room Air* 0 21 Intake/Output Intake and Output 06/10/24 07:00 Intake Total 3000 ml Output Total 1650 ml Balance 1350 ml Intake Oral 2800 ml IV Total 200 ml Output Urine Total 1650 ml Medications Current Medications Medications Dose Ordered Sig/Beth Route Start Time Stop Time Status Last Admin Dose Admin Sodium Chloride 1,000 ml @ 60 mls/hr [id number] IV 06/06/24 03:00 06/09/24 13:50 60 MLS/HR Acetaminophen/ Hydrocodone Bitart 1 tab Q4HP PRN PO 06/06/24 03:00 06/08/24 22:18 1 TAB Ondansetron HCl 4 mg Q4HP PRN IV 06/06/24 03:00 Docusate Sodium 100 mg BIDPRN PRN PO 06/06/24 03:00 Enoxaparin Sodium 40 mg DAILY SC 06/06/24 10:00 06/10/24 08:17 40 MG Zinc Sulfate 220 mg DAILY PO 06/06/24 10:00 06/10/24 08:17 220 MG Ascorbic Acid 500 mg BID PO 06/06/24 10:00 06/10/24 08:17 500 MG Acetaminophen 650 mg Q6HP PRN PO 06/06/24 03:00 Morphine Sulfate 2 mg Q4HPRN PRN IV 06/06/24 03:00 06/10/24 08:17 2 MG Nitroglycerin 0.4 mg Q5MINP PRN SL 06/06/24 04:00 Morphine Sulfate 2 mg Q30M PRN IV 06/06/24 04:00 Ampicillin Sodium 2 gm/Sodium Chloride 100 ml @ 100 mls/hr Q6H IV 06/09/24 08:00 06/10/24 08:15 100 MLS/HR Laboratory Results Laboratory Tests 06/07/24 07:08 06/08/24 06:22 Microbiology Microbiology Date/Time Source Procedure Growth Status 06/06/24 11:32 Leg Right Gram Stain - Final Complete 06/06/24 11:32 Leg Right Wound Culture - Final Complete 06/05/24 21:28 Blood Blood Culture - Preliminary NO GROWTH AFTER 72 HOURS OF INCUBATION. 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
--- NOTE | 2024-06-10 10:46 | DVHDS2 ---
Discharge Summary Date of Admission Jun 06, 2024 at 03:52 Date of Discharge: Jun 10, 2024 Admitting Diagnosis Infection of the right lower leg Wounds: Cellulitis right lower leg Labs/Diagnostic Data: Laboratory Results Test 06/08/24 06:22 06/07/24 11:30 06/07/24 07:08 06/05/24 21:28 Creatinine 0.84 mg/dL (0.700-1.30) Glomerular Filtration Rate Calc 99 mL/min (>90) Vancomycin Level Trough 12.7 ug/mL (5-10) White Blood Count 20.7 10^3/uL (4.4-10.8) Red Blood Count 3.40 10^6/uL (4.5-5.90) Hemoglobin 10.5 g/dL (13.5-17.5) Hematocrit 31.5 % (41.0-53.0) Mean Corpuscular Volume 92.7 fL (80.0-100.0) Mean Corpuscular Hemoglobin 31.0 pg (28.0-32.0) Mean Corpuscular Hemoglobin Concent 33.4 g/dL (32.0-36.0) Red Cell Distribution Width 14.7 % (11.8-14.3) Platelet Count 678 10^3/uL (140-450) Mean Platelet Volume 7.6 fL (6.9-10.8) Neutrophils (%) (Auto) 75.8 % (37.0-80.0) Lymphocytes (%) (Auto) 14.4 % (10.0-50.0) Monocytes (%) (Auto) 7.2 % (0.0-12.0) Eosinophils (%) (Auto) 2.0 % (0.0-7.0) Basophils (%) (Auto) 0.6 % (0.0-2.0) Neutrophils # (Auto) 15.7 10 ^3/uL (1.6-8.6) Lymphocytes # (Auto) 3.0 10 ^3/uL (0.4-5.4) Monocytes # (Auto) 1.5 10 ^3/uL (0-1.3) Eosinophils # (Auto) 0.4 10 ^3/uL (0-0.8) Basophils # (Auto) 0.1 10 ^3/uL (0-0.2) Nucleated Red Blood Cells 0.0 % Sodium Level 135 mmol/L (136-145) Potassium Level 4.4 mmol/L (3.5-5.1) Chloride Level 104 mmol/L (98-107) Carbon Dioxide Level 26 mmol/L (20-31) Anion Gap 5 (5-15) Blood Urea Nitrogen 11 mg/dL (9-23) BUN/Creatinine Ratio 14.3 (10.0-20.0) Serum Glucose 110 mg/dL (74-106) Calcium Level 7.8 mg/dL (8.7-10.4) Total Bilirubin 0.3 mg/dL (0.2-1.0) Aspartate Amino Transferase (AST) 15 U/L (13-40) Alanine Aminotransferase (ALT) 9 U/L (7-40) Alkaline Phosphatase 105 U/L (46-116) Total Protein 6.1 g/dL (5.7-8.2) Albumin 2.7 g/dL (3.2-4.8) Erythrocyte Sedimentation Rate 83 mm/hr (0-20) Lactic Acid Level 1.8 mmol/L (0.4-2.0) Troponin I High Sensitivity 3 ng/L (</=54) C-Reactive Protein High Sensitivity 13.50 mg/dL (<1.0) B-Type Natriuretic Peptide 73.84 pg/mL (0-100) Other Laboratory Tests 06/08/24 06:22 06/07/24 07:08 Brief Hx & Hospital Course: 63-year-old male had a mechanical fall 10 days ago came in complaining of nonhealing right lower leg wound CT right lower extremity negative for any fracture patient had severe cellulitis right lower extremity cultures grew group a strep started on ampicillin 2 g IV q.6 hours which he will receive for one month in the detention. DVT ruled out peripheral arterial disease ruled out blood cultures negative patient has history of sciatica. Being discharged to [facility] for IV antibiotic for one month physical therapy and rehab and management Consults/Reason for consult None Operations or Procedures CT right lower extremity Arterial ultrasound right lower extremity Venous ultrasound right lower extremity Condition at Discharge: Fair Final Diagnosis/Problems List Sepsis secondary to cellulitis of the right lower extremity Severe Cellulitis right lower extremity: Wound cultures growing group A strep, continue ampicillin 2 g IV q.6 hrs for one month Blood cultures negative History of sciatica History of fall 10 days ago: CT right lower extremity negative for any fracture DVT ruled out Peripheral arterial disease ruled out 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 Patient was counseled about treatment plan, medications, possible side effects, patientverbalized understanding. All questions were answered to the best of my ability. 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
[2024-06-11] VITALS (8 sets, daily range): BP systolic 101–125; BP diastolic 57–71; PULSE 75–87; RESP 17–19; TEMP 98–98.7; O2SAT 93–96
--- NOTE | 2024-06-11 10:04 | DVHPN2 ---
Reviewed: Care Plan, H&P, Labs, Medications, Previous Orders, Radiology Changes from previous H/P or p: No Changes Eyes: No Pain, No Vision change, No Conjunctivae inflammation, No Eyelid inflammation, No Other, No Redness ENT: No Ear pain, No Ear discharge, No Nose pain, No Nose discharge, No Nose congestion, No Mouth pain, No Mouth swelling, No Throat pain, No Throat swelling, No Other Cardiovascular: No Chest Pain, No Palpitations, No Orthopnea, No Paroxysmal Noc. Dyspnea, No Edema, No Lt Headedness, No Other Respiratory: No Cough, No Dry, No Shortness of breath, No SOB with excertion, No Wheezing, No Hemoptysis, No Pleuritic Pain, No Sputum, No Other Gastrointestinal: No Nausea, No Vomiting, No Abdominal Pain, No Diarrhea, No Constipation, No Melena, No Hematochezia, No Other Genitourinary: No Dysuria, No Frequency, No Incontinence, No Hematuria, No Retention, No Other Musculoskeletal: No other, No neck pain, No shoulder pain, No arm pain, No back pain, No hand pain, No leg pain, No foot pain Skin: No Rash, No Lesions, No Jaundice, No Bruising; Other (Right lower extremity oozing wound) Objective Vitals Vital Signs Date Time Temp Pulse Resp B/P (MAP) Pulse Ox O2 Delivery O2 Flow Rate FiO2 06/11/24 09:21 98.4 79 17 109/69 (82) 94 98.4 06/10/24 20:00 Room Air* 0 21 Intake/Output Intake and Output 06/11/24 07:00 Intake Total 2125 ml Output Total 2100 ml Balance 25 ml Intake Oral 1825 ml IV Total 300 ml Output Urine Total 2100 ml # Bowel Movements 1 Medications Current Medications Medications Dose Ordered Sig/Beth Route Start Time Stop Time Status Last Admin Dose Admin Sodium Chloride 1,000 ml @ 60 mls/hr [id number] IV 06/06/24 03:00 06/11/24 05:31 60 MLS/HR Acetaminophen/ Hydrocodone Bitart 1 tab Q4HP PRN PO 06/06/24 03:00 06/08/24 22:18 1 TAB Ondansetron HCl 4 mg Q4HP PRN IV 06/06/24 03:00 Docusate Sodium 100 mg BIDPRN PRN PO 06/06/24 03:00 Enoxaparin Sodium 40 mg DAILY SC 06/06/24 10:00 06/11/24 08:47 40 MG Zinc Sulfate 220 mg DAILY PO 06/06/24 10:00 06/11/24 08:46 220 MG Ascorbic Acid 500 mg BID PO 06/06/24 10:00 06/11/24 08:46 500 MG Acetaminophen 650 mg Q6HP PRN PO 06/06/24 03:00 Morphine Sulfate 2 mg Q4HPRN PRN IV 06/06/24 03:00 06/11/24 08:48 2 MG Nitroglycerin 0.4 mg Q5MINP PRN SL 06/06/24 04:00 Morphine Sulfate 2 mg Q30M PRN IV 06/06/24 04:00 Ampicillin Sodium 2 gm/Sodium Chloride 100 ml @ 100 mls/hr Q6H IV 06/09/24 08:00 06/11/24 08:45 100 MLS/HR Laboratory Results Laboratory Tests 06/07/24 07:08 06/08/24 06:22 Microbiology Microbiology Date/Time Source Procedure Growth Status 06/06/24 11:32 Leg Right Gram Stain - Final Complete 06/06/24 11:32 Leg Right Wound Culture - Final Complete 06/05/24 21:28 Blood Blood Culture - Final NO GROWTH AFTER 5 DAYS OF INCUBATION. 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
[2024-06-12] VITALS (7 sets, daily range): BP systolic 106–131; BP diastolic 59–66; PULSE 73–83; RESP 16–19; TEMP 98.2–98.6; O2SAT 94–98
--- NOTE | 2024-06-12 11:00 | DVHPN2 ---
Reviewed: Care Plan, H&P, Labs, Medications, Previous Orders, Radiology Changes from previous H/P or p: No Changes Eyes: No Pain, No Vision change, No Conjunctivae inflammation, No Eyelid inflammation, No Other, No Redness ENT: No Ear pain, No Ear discharge, No Nose pain, No Nose discharge, No Nose congestion, No Mouth pain, No Mouth swelling, No Throat pain, No Throat swelling, No Other Cardiovascular: No Chest Pain, No Palpitations, No Orthopnea, No Paroxysmal Noc. Dyspnea, No Edema, No Lt Headedness, No Other Respiratory: No Cough, No Dry, No Shortness of breath, No SOB with excertion, No Wheezing, No Hemoptysis, No Pleuritic Pain, No Sputum, No Other Gastrointestinal: No Nausea, No Vomiting, No Abdominal Pain, No Diarrhea, No Constipation, No Melena, No Hematochezia, No Other Genitourinary: No Dysuria, No Frequency, No Incontinence, No Hematuria, No Retention, No Other Musculoskeletal: No other, No neck pain, No shoulder pain, No arm pain, No back pain, No hand pain, No leg pain, No foot pain Skin: No Rash, No Lesions, No Jaundice, No Bruising; Other (Right lower extremity oozing wound) Objective Vitals Vital Signs Date Time Temp Pulse Resp B/P (MAP) Pulse Ox O2 Delivery O2 Flow Rate FiO2 06/12/24 08:44 98.4 74 19 112/64 (80) 98 98.4 06/12/24 08:00 Room Air* 0 21 Intake/Output Intake and Output 06/12/24 06:59 Intake Total 2225 ml Output Total 3650 ml Balance -1425 ml Intake Oral 1825 ml IV Total 400 ml Output Urine Total 3650 ml # Bowel Movements 2 Medications Current Medications Medications Dose Ordered Sig/Beth Route Start Time Stop Time Status Last Admin Dose Admin Sodium Chloride 1,000 ml @ 60 mls/hr [id number] IV 06/06/24 03:00 06/11/24 05:31 60 MLS/HR Acetaminophen/ Hydrocodone Bitart 1 tab Q4HP PRN PO 06/06/24 03:00 06/08/24 22:18 1 TAB Ondansetron HCl 4 mg Q4HP PRN IV 06/06/24 03:00 Docusate Sodium 100 mg BIDPRN PRN PO 06/06/24 03:00 Enoxaparin Sodium 40 mg DAILY SC 06/06/24 10:00 06/11/24 08:47 40 MG Zinc Sulfate 220 mg DAILY PO 06/06/24 10:00 06/11/24 08:46 220 MG Ascorbic Acid 500 mg BID PO 06/06/24 10:00 06/11/24 21:29 500 MG Acetaminophen 650 mg Q6HP PRN PO 06/06/24 03:00 Morphine Sulfate 2 mg Q4HPRN PRN IV 06/06/24 03:00 06/12/24 08:27 2 MG Nitroglycerin 0.4 mg Q5MINP PRN SL 06/06/24 04:00 Morphine Sulfate 2 mg Q30M PRN IV 06/06/24 04:00 Ampicillin Sodium 2 gm/Sodium Chloride 100 ml @ 100 mls/hr Q6H IV 06/09/24 08:00 06/12/24 08:30 100 MLS/HR Laboratory Results Laboratory Tests 06/07/24 07:08 06/08/24 06:22 Microbiology Microbiology Date/Time Source Procedure Growth Status 06/06/24 11:32 Leg Right Gram Stain - Final Complete 06/06/24 11:32 Leg Right Wound Culture - Final Complete 06/05/24 21:28 Blood Blood Culture - Final NO GROWTH AFTER 5 DAYS OF INCUBATION. 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
== END 2024-06-12 16:45 | DRG 720 ==
LOC: ER 19:11 → TELE 06-06 03:52 → WEST WING 06-06 06:24 → TELE-WESTW 06-06 08:32
PROVIDERS: ADMIT Family Medicine; ATTEND Family Medicine
PROC: 05H933Z Insertion of Infusion Device into Right Brachial Vein, Percutaneous Approach (ICD-10-PCS; principal; 2024-06-08)
PROC: B54MZZA Ultrasonography of Right Upper Extremity Veins, Guidance (ICD-10-PCS; 2024-06-08)
DX: A41.9 Sepsis, unspecified organism (principal); E44.0 Moderate protein-calorie malnutrition; L03.115 Cellulitis of right lower limb; E87.6 Hypokalemia; Z59.02 Unsheltered homelessness; Z79.899 Other long term (current) drug therapy; Z68.1 Body mass index [BMI] 19.9 or less, adult
CPT/HCPCS: 36415; 73701; 80053; 80202; 82565; 83605; 83880; 84484; 85025; 85652; 86141; 87040; 87205; 93926; 93971; 97110; 97116; 97163; 97530; G0378; J2543

== ENCOUNTER 2024-10-08 17:52 | Inpatient (IN) | payer MEDICAID ==
[~2024-10-08] VITALS: Ht 167.6 cm; Wt 60.2 kg
[2024-10-08 19:09] LABS: Basophils # (auto) 0 10 ^3/uL (0-0.2); Basophils % (auto) 0.5 % (0.0-2.0); Eosinophils # (auto) 0.3 10 ^3/uL (0-0.8); Eosinophils % (auto) 5.1 % (0.0-7.0); Hematocrit 45.5 % (41.0-53.0); Hemoglobin 15.5 g/dL (13.5-17.5); Lymphocytes # (auto) 1.2 10 ^3/uL (0.4-5.4); Lymphocytes % (auto) 22.8 % (10.0-50.0); Mean Corpuscular Hemoglobin 29.9 pg (28.0-32.0); Mean Corpuscular Hgb Conc. 34.2 g/dL (32.0-36.0); Mean Corpuscular Volume 87.5 fL (80.0-100.0); Monocytes # (auto) 0.8 10 ^3/uL (0-1.3); Monocytes % (auto) 14.8 % (0.0-12.0); Neutrophils % (auto) 56.8 % (37.0-80.0); Nucleated Red Blood Cells % 0.1 %; Platelet Count (auto) 298 10^3/uL (140-450); Red Cell Distribution Width 14.1 % (11.8-14.3); White Blood Cell 5.3 10^3/uL (4.4-10.8)
[2024-10-08 19:33] LABS: Alanine Aminotransferase 30 U/L (7-40); Anion Gap 6 (5-15); Aspartate Aminotransferase 29 U/L (13-40); BUN/Creatinine Ratio 8.6 (10.0-20.0); Blood Urea Nitrogen 9 mg/dL (9-23); Calcium 9.6 mg/dL (8.7-10.4); Carbon Dioxide 24 mmol/L (20-31); Chloride 105 mmol/L (98-107); Glucose 88 mg/dL (74-106); Potassium 4.4 mmol/L (3.5-5.1); Total Protein 8.1 g/dL (5.7-8.2)
[2024-10-08 19:34] LABS: Albumin 4.7 g/dL (3.2-4.8)
[2024-10-08 19:41] LABS: Alkaline Phosphatase 118 U/L (46-116); Bilirubin, Total 0.2 mg/dL (0.2-1.0); Sodium 135 mmol/L (136-145)
--- NOTE | 2024-10-08 20:34 | ED.PDOC ---
Musculoskeletal HPI Comments 64-YEAR-OLD MALE BROUGHT IN BY EMS. PATIENT WAS AT [facility]. PATIENT HAS A CHRONIC WOUND TO HIS RIGHT LOWER LEG. 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 STATES HE WAS INITIALLY ON ANTIBIOTICS VIA PICC LINE. STATES ANTIBIOTICS WHICH STOPPED AND HE WAS SENT TO [facility] WITH ACUTE CARE WAS ON ADDITIONAL ANTIBIOTICS GETTING WOUND CARE AND THEN RELEASED TO [facility]. HE HAD A VISIT WITH HOME HEALTH NURSE TODAY AND THEY ADVISED HIM HE NEEDS TO COME INTO THE EMERGENCY DEPARTMENT BECAUSE WOUND APPEARS TO BE GETTING WORSE. PATIENT STATES HE INITIAL INJURY WAS SMALL LESIONS ON THE ANDERSON AND HE STATES NOW THE LESION IS ONE LARGE LESION ACROSS THE ANTERIOR PORTION OF THE LOWER LEG. PATIENT STATES HE HAS HAD CHRONIC PAIN SINCE THE INJURY, NO FEVERS NO CHILLS. STATES HE HAS NOT NOTICED ANY INCREASE IN DISCHARGE IN THE WOUND. Chief Complaint: Wound Check Time Seen by MD: 18:11 Primary Care Provider: UNKNOWN Reviewed Notes: Nurses Notes Allergies: Coded Allergies: NO KNOWN ALLERGIES (Unverified , 01/25/22) Home Meds Active Scripts Gabapentin (Gabapentin) 300 Mg Cap, 1 CAP PO TID PRN for 20 Days, #20 CAP 5 Refills Prov:DAWSON CAMARENA MD 01/25/22 Baclofen (Baclofen) 5 Mg Tab, 5 MG PO QHSP PRN for 20 Days, #20 TAB Prov:DAWSON CAMARENA MD 01/25/22 Information Source: Patient Mode of Arrival: EMS Past Medical History PAST MEDICAL HISTORY: Denies Surgical History: Hernia Repair Family History Family History: Reviewed,noncontributory to illness, No family hx of Cancer, No family hx of DM, No family hx of Heart stephen, No family hx of HTN, No family hx ofKidney stephen, No family hx of Liver stephen, No family hx of Lung stephen, No family hx of Stroke Social History Smoker: Non-Smoker Alcohol: Denies ETOH Use Drugs: Methamphetamine Lives In: Home Constitutional: denies: chills, diaphoresis, fatigue, fever, malaise, sweats, weakness, others EENTM: denies: blurred vision, double vision, ear bleeding, ear discharge, ear drainage, ear pain, ear ringing, eye pain, eye redness, hearing loss, mouth pain, mouth swelling, nasal discharge, nose bleeding, nose congestion, nose pain, photophobia, tearing, throat pain, throat swelling, voice changes, others Respiratory: denies: cough, hemoptysis, orthopnea, SOB at rest, shortness of breath, SOB with excertion, stridor, wheezing, others Cardiovascular: denies: chest pain, dizzy spells, diaphoresis, Dyspnea on exertion, edema, irregular heart beat, left arm pain, lightheadedness, palpitations, PND, syncope, others Gastrointestinal: denies: abdomen distended, abdominal pain, blood streaked bowels, constipated, diarrhea, dysphagia, difficulty swallowing, hematemesis, melena, nausea, poor appetite, poor fluid intake, rectal bleeding, rectal pain, vomiting, others Genitourinary: denies: burning, dysuria, flank pain, frequency, hematuria, incontinence, penile discharge, penile sore, pain, testicle pain, testicle swelling, urgency, others Neurological: denies: dizziness, fainting, headache, left sided numbness, left sided weakness, numbness, paresthesia, pre-existing deficit, right sided numbness, right sided weakness, seizure, speech problems, tingling, tremors, weakness, others Musculoskeletal: denies: back pain, gout, joint pain, joint swelling, muscle pain, muscle stiffness, neck pain, others Integumetry: reports: lesions, wounds; denies: bruises, change in color, change in hair/nails, dryness, laceration, lumps, rash, others Allergic/Immunocompromised: denies: Difficulty Healing, Frequent Infections, Hives, Itching, others Endocrine: denies: excessive hunger, excessive sweating, excessive thirst, excessive urination, flushing, intolerance to cold, intolerance to heat, unexplained weight gain, unexplained weight loss, others Psychiatric: denies: anxiety, bipolar disorder, depression, hopeless, panic disorder, schizophrenia, sleepless, suicidal, others Physical Exam General Appearance: No Apparent Distress, Normal HEENT: Normal ENT Inspection, Pharynx Normal, TMs Normal Neck: Full Range of Motion, Non-Tender, Normal, Normal Inspection Respiratory: Chest Non-Tender, Lungs Clear, No Accessory Muscle Use, No Respiratory Distress, Normal Breath Sounds Cardiovascular: No Edema, No JVD, No Murmur, No Gallop, Normal Peripheral Pulses, Regular Rate/Rhythm Breast Exam: Deferred Gastrointestinal: No Organomegaly, Non Tender, No Pulsatile Mass, Normal Bowel Sounds, Soft Genitalia: Deferred Pelvic: Deferred Rectal: Deferred Extremities: No calf tenderness, Normal capillary refill, Normal inspection, Normal range of motion, Non-tender, No pedal edema Musculoskeletal : Apperance: Normal Neurologic: Alert, apparel rental clerk II-XII nml as Tested, No Motor Deficits, Normal Affect, Normal Mood, No Sensory Deficits Cerebellar Function: Normal Reflexes: Normal Skin: Dry, Normal Color, Warm, Wounds (WOUND TO THE ANTERIOR SIDE OF THE RIGHT LOWER EXTREMITY. THERE ARE THREE WOUNDS NOTED. VERTICAL ORIENTATION. LARGEST WOUND MEASURES APPROXIMATE 2 CM X 5 CM IN THE CENTER. THE WOUND ABOVE MEASURES 2 X 2 THE WOUND BELOW MEASURES 2 X 3. EACH WOUND HAS GRANULATION AND SLOUGHING OVER THE WOUND. NO OBVIOUS ODOR. SURROUNDING TISSUE AROUND THE WOUNDS IS ERYTHEMIC. PATIENT REPORTS TENDERNESS TO THE TOUCH.) Lymphatic: No Adenopathy Was a procedure done? Was a procedure done?: No Differential Diagnosis EXT Differential Diagnosis: Cellulitis, Deep Vein Thrombosis, Compartment Syndrome, Neurovascular injury X-Ray, Labs, Meds, VS Vital Signs Date Time Temp Pulse Resp B/P (MAP) Pulse Ox O2 Delivery O2 Flow Rate FiO2 10/08/24 18:39 97.8 90 16 122/64 (83) 95 97.8 Lab Test 10/08/24 18:52 Range/Units White Blood Count 5.3 4.4-10.8 10^3/uL Red Blood Count 5.20 4.5-5.90 10^6/uL Hemoglobin 15.5 13.5-17.5 g/dL Hematocrit 45.5 41.0-53.0 % Mean Corpuscular Volume 87.5 80.0-100.0 fL Mean Corpuscular Hemoglobin 29.9 28.0-32.0 pg Mean Corpuscular Hemoglobin Concent 34.2 32.0-36.0 g/dL Red Cell Distribution Width 14.1 11.8-14.3 % Platelet Count 298 140-450 10^3/uL Mean Platelet Volume 7.0 6.9-10.8 fL Neutrophils (%) (Auto) 56.8 37.0-80.0 % Lymphocytes (%) (Auto) 22.8 10.0-50.0 % Monocytes (%) (Auto) 14.8 H 0.0-12.0 % Eosinophils (%) (Auto) 5.1 0.0-7.0 % Basophils (%) (Auto) 0.5 0.0-2.0 % Neutrophils # (Auto) 3.0 1.6-8.6 10 ^3/uL Lymphocytes # (Auto) 1.2 0.4-5.4 10 ^3/uL Monocytes # (Auto) 0.8 0-1.3 10 ^3/uL Eosinophils # (Auto) 0.3 0-0.8 10 ^3/uL Basophils # (Auto) 0 0-0.2 10 ^3/uL Nucleated Red Blood Cells 0.1 % Sodium Level 135 L 136-145 mmol/L Potassium Level 4.4 3.5-5.1 mmol/L Chloride Level 105 98-107 mmol/L Carbon Dioxide Level 24 20-31 mmol/L Anion Gap 6 5-15 Blood Urea Nitrogen 9 9-23 mg/dL Creatinine 1.05 0.700-1.30 mg/dL Glomerular Filtration Rate Calc 80 >90 mL/min BUN/Creatinine Ratio 8.6 L 10.0-20.0 Serum Glucose 88 74-106 mg/dL Calcium Level 9.6 8.7-10.4 mg/dL Total Bilirubin 0.2 0.2-1.0 mg/dL Aspartate Amino Transferase (AST) 29 13-40 U/L Alanine Aminotransferase (ALT) 30 7-40 U/L Alkaline Phosphatase 118 H 46-116 U/L Total Protein 8.1 5.7-8.2 g/dL Albumin 4.7 3.2-4.8 g/dL X-Ray, Labs, Meds, VS Comment PATIENT WILL BE ADMITTED FOR CHRONIC WOUND TO THE RIGHT LOWER EXTREMITY PATIENT WILL BE STARTED ON VANCOMYCIN BLOOD CULTURES OBTAINED PATIENT FAILED OUTPATIENT TREATMENT FOR WOUND, RECOMMEND ID CONSULT. Time of 1ST Reevaluation: 20:34 Reevaluation 1ST: Unchanged Patient Education/Counseling: Diagnosis, Treatment Family Education/Counseling: Diagnosis Departure 1 Departure Time of Disposition: 20:33 Impression: Primary Impression: Cellulitis of right leg Disposition: ADMITTED INPATIENT Condition: Stable Discharged With: Self Critical Care Note Critical Care Time?: No Stability Stability form required: No Heart Score Heart Score: Heart Score Response (Comments) Value History N/A 0 EKG N/A 0 Age N/A 0 Risk Factors N/A 0 Troponin N/A 0 Total 0 CONSTANCE STOCK October 08, 2024 20:34
[2024-10-08] MEDS ORDERED: VANCOMYCIN PER PHARMACY 0 MG IV SCH (21:45)
--- NOTE | 2024-10-08 22:09 | DVH ---
Procedure: CT CT R TIB FIB WO CONTRAST 10/08/2024 09:05 PM Indication: WOUND Comparison Study: None Technique: Axial images right tibia/ fibula were obtained and reformatted in coronal and sagittal tran jeri. All CT scans at this medical facility are performed using dose modulation techniques as appropri ate to a performed exam including the following: Automated exposure control was utilized; adjustment of the MA and/or KV according to patient size; and use of iterative reconstruction technique. CT Dose : CTDI volume is 7.8 mGy. Dose-length product is 526 mGy*cm FINDINGS: Bones: No acute fracture or dislocation. No cortical erosion or lytic osseous lesion. Joint spaces a re maintained. Hallux valgus deformity 1st MTP joint osteoarthritis. Soft tissues: Skin ulceration with underlying subcutaneous soft tissue fat induration. Moderate fatty atrophy and edema of the tibialis anterior muscle is noted. No edema along the deep intermuscular pl anes. No definite drainable fluid collection in this limited unenhanced study. Atherosclerotic calci fication of tibioperoneal trunk an its proximal branches noted. IMPRESSION: 1. Soft tissue ulceration with underlying subcutaneous fat induration. No definite drainable fluid c ollection in this limited unenhanced study. No evidence of acute osteomyelitis. 2. Peripheral arterial disease.
--- NOTE | 2024-10-08 22:46 | DVHHP2 ---
History of Present Illness Reason for Visit: open wound History of Present Illness 64-year-old male with history of sciatica and methamphetamine use brought in from [facility] for evaluation of a chronic wound on his right lower extremity. Injury reportedly occurred on June 03 after tripping and falling while carrying groceries. Initially managed with IV antibiotics via PICC line and wound care, but the patient reports the lesion has worsened. Seen today by home health nurse who advised ED evaluation due to concern for infection progression. He endorses chronic pain, denies fever, chills, or increased drainage. Noted to have a large anterior tibial lesion with surrounding erythema and induration. Past Medical History: Sciatica Past Surgical History: Hernia repair Removal of rectal foreign body Allergies: No known drug allergies Social History: Non-smoker Denies alcohol use Methamphetamine use Lives in assisted living facility Review of Systems: Negative except for localized leg pain and chronic wound Review of Systems Allergies: Coded Allergies: NO KNOWN ALLERGIES (Unverified , 01/25/22) Medications Current Medications Medications Dose Ordered Sig/Beth Route Start Time Stop Time Status Last Admin Dose Admin Acetaminophen 650 mg Q6HP PRN PO 10/08/24 21:45 Enoxaparin Sodium 40 mg DAILY SC 10/09/24 10:00 Ceftriaxone Sodium 50 ml @ 100 mls/hr DAILY@09 IV 10/08/24 21:45 Vancomycin HCl 0 ml @ 0 mls/hr UD IV 10/08/24 21:45 Doxycycline Hyclate 100 ml @ 50 mls/hr Q12H IV 10/08/24 22:30 Exam Vital Signs Vital Signs Date Time Temp Pulse Resp B/P (MAP) Pulse Ox O2 Delivery O2 Flow Rate FiO2 10/08/24 22:24 97.7 85 16 122/74 (90) 97 97.7 Exam General: No acute distress Skin: Large anterior tibial wound, indurated, no active drainage Extremities: No edema, tenderness over wound site Neuro: Alert and oriented HEENT: Atraumatic, PERRLA Respiratory: Clear to auscultation, Normal air movement Cardiovascular: Regular rate, Normal S1 Abdominal: Normal bowel sounds Labs/Xrays Labs Test 10/08/24 18:52 Range/Units White Blood Count 5.3 4.4-10.8 10^3/uL Red Blood Count 5.20 4.5-5.90 10^6/uL Hemoglobin 15.5 13.5-17.5 g/dL Hematocrit 45.5 41.0-53.0 % Mean Corpuscular Volume 87.5 80.0-100.0 fL Mean Corpuscular Hemoglobin 29.9 28.0-32.0 pg Mean Corpuscular Hemoglobin Concent 34.2 32.0-36.0 g/dL Red Cell Distribution Width 14.1 11.8-14.3 % Platelet Count 298 140-450 10^3/uL Mean Platelet Volume 7.0 6.9-10.8 fL Neutrophils (%) (Auto) 56.8 37.0-80.0 % Lymphocytes (%) (Auto) 22.8 10.0-50.0 % Monocytes (%) (Auto) 14.8 H 0.0-12.0 % Eosinophils (%) (Auto) 5.1 0.0-7.0 % Basophils (%) (Auto) 0.5 0.0-2.0 % Neutrophils # (Auto) 3.0 1.6-8.6 10 ^3/uL Lymphocytes # (Auto) 1.2 0.4-5.4 10 ^3/uL Monocytes # (Auto) 0.8 0-1.3 10 ^3/uL Eosinophils # (Auto) 0.3 0-0.8 10 ^3/uL Basophils # (Auto) 0 0-0.2 10 ^3/uL Nucleated Red Blood Cells 0.1 % Sodium Level 135 L 136-145 mmol/L Potassium Level 4.4 3.5-5.1 mmol/L Chloride Level 105 98-107 mmol/L Carbon Dioxide Level 24 20-31 mmol/L Anion Gap 6 5-15 Blood Urea Nitrogen 9 9-23 mg/dL Creatinine 1.05 0.700-1.30 mg/dL Glomerular Filtration Rate Calc 80 >90 mL/min BUN/Creatinine Ratio 8.6 L 10.0-20.0 Serum Glucose 88 74-106 mg/dL Calcium Level 9.6 8.7-10.4 mg/dL Total Bilirubin 0.2 0.2-1.0 mg/dL Aspartate Amino Transferase (AST) 29 13-40 U/L Alanine Aminotransferase (ALT) 30 7-40 U/L Alkaline Phosphatase 118 H 46-116 U/L Total Protein 8.1 5.7-8.2 g/dL Albumin 4.7 3.2-4.8 g/dL Assessment/Plan Assessment/Plan Past Medical History: Sciatica, Past Surgical History: Hernia repair, removal of foreign body in the rectum Social History Smoker: Non-Smoker Alcohol: Denies ETOH Use Drugs: Methamphetamine Lives In: Home Cellulitis right lower extremity: H/o Wound cultures growing group A strep History of sciatica History of fall May 2024 DVT ruled out Peripheral arterial disease H/o meth use Admit Med surg Leg US Vancomycin iv Ceftriaxone iv Wound consult and cultures Case discussed with Dr Tatum Full code Plan discussed with: Patient, Other (rn) My Orders Orders - LESTER DALY Procedure Category Date Status Time Admit ADMIT 10/08/24 Transmitted 21:39 Code Status CODE 10/08/24 Transmitted 21:39 Vital Signs AFSHAN 10/08/24 In Process 21:39 Review Orders With [facility] 10/08/24 In Process Adm. 21:39 Acetaminophen Tablet PHA 10/08/24 In Process (Tylenol Tablet) 21:45 Notify Md Of Changes AFSHAN 10/08/24 In Process From Base 21:39 Advance Directive AFSHAN 10/08/24 In Process 21:39 Patient Condition ORDERS 10/08/24 Transmitted 21:39 Allergies AFSHAN 10/08/24 In Process 21:39 Enoxaparin Sodium PHA 10/09/24 In Process (Lovenox) 10:00 Ceftriaxone 1gm/50ml PHA 10/08/24 In Process D5w (Rocephin) 21:45 Vancomycin Per PHA 10/08/24 In Process Pharmacy 21:45 * Wound Consult CONS 10/08/24 Transmitted Wound Culture W/ Gs ILDA 10/08/24 Logged 21:39 Basic Metabolic Panel LAB 10/09/24 Verified 04:00 Doxycycline PHA 10/08/24 In Process 100mg/100ml 22:30 Date of Service: October 08, 2024 Billing Provider: JOSÉ MIGUEL TATUM MD Common Visit Codes: [id number] INP/OBS CARE (HIGH) Secondary Visit Codes: [id number] CARE PLAN 30 MINUTES LESTER DALY October 08, 2024 22:46
[2024-10-09] VITALS (8 sets, daily range): BP systolic 101–129; BP diastolic 59–74; PULSE 16–81; RESP 16–18; TEMP 96.1–98; O2SAT 95–98
[2024-10-09] MEDS: KETOROLAC TROMETH 30 MG/ML 1ML VIAL IV ONE (00:28)
[2024-10-09] MEDS: VANCOMYCIN 1GM/200ML PM 200 ML IV ONE (00:33)
[2024-10-09] MEDS: ACETAMINOPHEN 325 MG TAB PO PRN (02:04)
[2024-10-09] MEDS: cefTRIAXone 1GM/50ML D5W 50 ML IV SCH (02:05)
[2024-10-09] MEDS: DOXYCYCLINE 100MG/100ML 100 ML IV SCH (02:47)
[2024-10-09] MEDS ORDERED: HYDR-4798 PO (04:07)
[2024-10-09 05:55] LABS: Basophils # (auto) 0 10 ^3/uL (0-0.2); Basophils % (auto) 0.5 % (0.0-2.0); Eosinophils # (auto) 0.3 10 ^3/uL (0-0.8); Eosinophils % (auto) 6.3 % (0.0-7.0); Hematocrit 42.2 % (41.0-53.0); Hemoglobin 14.5 g/dL (13.5-17.5); Lymphocytes # (auto) 1.1 10 ^3/uL (0.4-5.4); Lymphocytes % (auto) 24.2 % (10.0-50.0); Mean Corpuscular Hemoglobin 30.1 pg (28.0-32.0); Mean Corpuscular Hgb Conc. 34.3 g/dL (32.0-36.0); Mean Corpuscular Volume 87.7 fL (80.0-100.0); Monocytes # (auto) 0.5 10 ^3/uL (0-1.3); Neutrophils # (auto) 2.6 10 ^3/uL (1.6-8.6); Nucleated Red Blood Cells % 0.1 %; Platelet Count (auto) 237 10^3/uL (140-450); Red Blood Cells 4.81 10^6/uL (4.5-5.90); Red Cell Distribution Width 13.9 % (11.8-14.3); White Blood Cell 4.5 10^3/uL (4.4-10.8)
[2024-10-09 06:13] LABS: Alanine Aminotransferase 24 U/L (7-40); Alkaline Phosphatase 100 U/L (46-116); Anion Gap 9 (5-15); Aspartate Aminotransferase 24 U/L (13-40); BUN/Creatinine Ratio 11.8 (10.0-20.0); Blood Urea Nitrogen 14 mg/dL (9-23); Carbon Dioxide 23 mmol/L (20-31); Chloride 104 mmol/L (98-107); Potassium 3.6 mmol/L (3.5-5.1); Total Protein 6.8 g/dL (5.7-8.2)
[2024-10-09 06:14] LABS: Bilirubin, Total 0.3 mg/dL (0.2-1.0)
[2024-10-09 06:29] LABS: Calcium 8.6 mg/dL (8.7-10.4); Glucose 125 mg/dL (74-106); Sodium 136 mmol/L (136-145)
[2024-10-09] MEDS: metroNIDAZOLE 500MG/100ML 100 ML IV SCH (08:43)
--- NOTE | 2024-10-09 08:53 | DVH ---
US BiLat Lower DVT HISTORY: rule out dvt COMPARISON: US RT LOWER DVT on DOS: 06/05/24 TECHNIQUE: Duplex doppler evaluation of the deep venous system of the lower extremity from the common femoral veins, superficial femoral vein, great saphenous vein, deep femoral vein, popliteal vein, an d calf veins, including color doppler and spectral/pulsed waveform analysis, was performed. FINDINGS: Right: - Common femoral vein: Compressible - Deep femoral vein: Compressible - Femoral vein: Compressible - Popliteal vein: Compressible - Posterior tibial vein: Waveforms present - Other: Nothing Left: - Common femoral vein: Compressible - Deep femoral vein: Compressible - Femoral vein: Compressible - Popliteal vein: Compressible - Posterior tibial vein: Waveforms present - Other: Nothing IMPRESSION: No right or left lower extremity deep venous thrombosis.
[2024-10-09 09:24] LABS: Urine Bacteria None Seen /hpf (None Seen)
[2024-10-09 09:29] LABS: Urine Blood Negative /uL (Negative); Urine Clarity Clear (Clear); Urine Color Light-Yellow (Yellow); Urine Protein, UAD Negative (Negative); Urine Specific Gravity 1.022 (1.001-1.035); Urine Squamous Epithelial Cell FEW /hpf (<5); Urine Urobilinogen Normal (Negative); Urine WBC < 1 /HPF (0-3); Urine pH 5.5 (5.0-9.0)
[2024-10-09 09:31] LABS: Triglycerides 84 mg/dL (< 150)
[2024-10-09 09:33] LABS: Cholesterol 150 mg/dL (< 200); HDL Cholesterol 60 mg/dL (40-59); LDL Cholesterol 83 mg/dL (< 100)
[2024-10-09 09:56] LABS: Opiate Scree,Urine Neg (NEGATIVE)
[2024-10-09 09:59] LABS: Amphetamine Screen, Urine Neg (NEGATIVE); Barbiturate Scree,Urine Neg (NEGATIVE); Benzodiazephine Screen, Urine Neg (NEGATIVE); Cannabinoid Screen, Urine Neg (NEGATIVE); Cocaine Screen, Urine Neg (NEGATIVE); Phencyclidine Screen, Urine Neg (NEGATIVE)
--- NOTE | 2024-10-09 11:17 | DVH ---
Indication: PAD Technique: Real- time ultrasound images of the bilateral lower extremity with grayscale, color, and spectral wave Doppler. Comparison: US RT LOW EXT ART DUPLEX on DOS: 06/06/24 Findings: Triphasic waveforms in the right [employer] CABLE TOOL, SFA, popliteal, posterior tibial, dorsalis pedis arteries and l eft [employer] CABLE TOOL, SFA, popliteal, posterior tibial, dorsalis pedis arteries. Mild atherosclerotic plaque bilat erally. Peak systolic velocities are as follows (in cm/s): Right: Common femoral artery: 118 Profunda femoris: 90 Proximal superficial femoral: 93 Mid superficial femoral artery: 97 Distal superficial femoral artery: 94 Popliteal artery: 75 Posterior tibial artery: 75 Dorsalis pedis artery: 66 Left: Common femoral artery: 69 Profunda femoris: 57 Proximal superficial femoral: 92 Mid superficial femoral artery: 87 Distal superficial femoral artery: 94 Popliteal artery: 61 Posterior tibial artery: 90 Dorsalis pedis artery: 61 Impression: 1. No sonographic evidence for hemodynamically significant stenosis.
[2024-10-09] MEDS: ENOXAPARIN SOD 40 MG/0.4 ML SYRINGE SC SCH (11:21)
[2024-10-09] MEDS: ASPirin 81 mg TAB PO SCH (11:21)
[2024-10-09] MEDS: VANCOMYCIN 500mg/100mL 100 ML IV SCH (16:56)
--- NOTE | 2024-10-09 17:55 | DVHPN2 ---
Subjective in bed resting Changes from previous H/P or p: No Changes Objective Vitals Vital Signs Date Time Temp Pulse Resp B/P (MAP) Pulse Ox O2 Delivery O2 Flow Rate FiO2 10/09/24 15: 98.0 70 18 112/59 (76) 98 98.0 10/09/24 02:50 Room Air* 0 21 Intake/Output Intake and Output 10/09/24 07:00 Intake Total 350 ml Balance 350 ml Intake IV Total 350 ml General Appearance: Oriented X3 HEENT: Atraumatic, PERRLA Cardiovascular: Regular rate, Normal S1, Normal S2 Abdomen: Normal bowel sounds Medications Current Medications Medications Dose Ordered Sig/Beth Route Start Time Stop Time Status Last Admin Dose Admin Acetaminophen 650 mg Q6HP PRN PO 10/08/24 21:45 10/09/24 09:47 650 MG Enoxaparin Sodium 40 mg DAILY SC 10/09/24 10:00 10/09/24 11:21 40 MG Ceftriaxone Sodium 50 ml @ 100 mls/hr DAILY@09 IV 10/08/24 21:45 10/09/24 10:56 100 MLS/HR Vancomycin HCl 0 ml @ 0 mls/hr UD IV 10/08/24 21:45 Aspirin 81 mg DAILY PO 10/09/24 10:00 10/09/24 11:21 81 MG Metronidazole 100 ml @ 100 mls/hr Q8HR IV 10/09/24 07:15 10/09/24 14:42 100 MLS/HR Vancomycin HCl 100 ml @ 200 mls/hr Q12H IV 10/09/24 15:00 10/09/24 16:56 200 MLS/HR Laboratory Results Laboratory Tests 10/09/24 04:55 Chemistry Test 10/08/24 18:52 10/09/24 04:55 Albumin 4.7 g/dL (3.2-4.8) 4.0 g/dL (3.2-4.8) Calcium Level 9.6 mg/dL (8.7-10.4) 8.6 mg/dL (8.7-10.4) L Total Protein 8.1 g/dL (5.7-8.2) 6.8 g/dL (5.7-8.2) Lipid panel Test 10/09/24 04:55 Cholesterol Level 150 mg/dL (< 200) HDL Cholesterol 60 mg/dL (40-59) H Triglycerides Level 84 mg/dL (< 150) LFT Test 10/08/24 18:52 10/09/24 04:55 Alanine Aminotransferase (ALT) 30 U/L (7-40) 24 U/L (7-40) Alkaline Phosphatase 118 U/L (46-116) H 100 U/L (46-116) Aspartate Amino Transferase (AST) 29 U/L (13-40) 24 U/L (13-40) Total Bilirubin 0.2 mg/dL (0.2-1.0) 0.3 mg/dL (0.2-1.0) HgA1c, TSH Test 10/09/24 04:55 Hemoglobin A1c 5.3 % A1C (<5.7) Thyroid Stimulating Hormone (TSH) 1.35 uIU/mL (0.55-4.78) Urinalysis Test 10/09/24 09:10 Urine Color Light-yellow (Yellow) Urine Clarity Clear (Clear) Urine pH 5.5 (5.0-9.0) Urine Specific [place] 1.022 (1.001-1.035) Urine Protein Negative (Negative) Urine Ketones 1+ (Negative) H Urine Blood Negative /uL (Negative) Urine Nitrite Negative (Negative) Urine Bilirubin Negative (Negative) Urine Urobilinogen Normal mg/dL (Negative) Urine Leukocyte Esterase Negative /uL (Negative) Urine RBC <1 /hpf (0 - 3) Urine Microscopic WBC < 1 /HPF (0-3) Urine Squamous Epithelial Cells Few /hpf (<5) Urine Bacteria None seen /hpf (None Seen) Urine Glucose Normal mg/dL (Normal) Assessment/Plan Assessment/Plan Cellulitis right lower extremity: H/o Wound cultures growing group A strep History of sciatica History of fallMay 2024 DVT ruled out Peripheral arterial disease H/o meth use Admit Vancomycin iv Ceftriaxone iv Wound consult and cultures US arterial negative Plan discussed with: Patient Date of Service: October 09, 2024 Billing Provider: TRISTAN SAMSON MD Common Visit Codes: [id number] INP/OBS CARE(HIGH) TRISTAN SAMSON MD October 09, 2024 17:55
[2024-10-10] VITALS (8 sets, daily range): BP systolic 120–141; BP diastolic 69–74; PULSE 61–80; RESP 14–20; TEMP 97.4–97.9; O2SAT 96–100
[2024-10-10 06:26] LABS: Basophils # (auto) 0 10 ^3/uL (0-0.2); Basophils % (auto) 0.5 % (0.0-2.0); Eosinophils # (auto) 0.5 10 ^3/uL (0-0.8); Eosinophils % (auto) 9.1 % (0.0-7.0); Hematocrit 41.9 % (41.0-53.0); Hemoglobin 14.2 g/dL (13.5-17.5); Lymphocytes # (auto) 1.9 10 ^3/uL (0.4-5.4); Mean Corpuscular Hemoglobin 29.7 pg (28.0-32.0); Mean Corpuscular Hgb Conc. 33.9 g/dL (32.0-36.0); Mean Corpuscular Volume 87.8 fL (80.0-100.0); Monocytes # (auto) 0.7 10 ^3/uL (0-1.3); Monocytes % (auto) 12.9 % (0.0-12.0); Neutrophils # (auto) 2.5 10 ^3/uL (1.6-8.6); Neutrophils % (auto) 43.5 % (37.0-80.0); Nucleated Red Blood Cells % 0.1 %; Platelet Count (auto) 246 10^3/uL (140-450); Red Blood Cells 4.77 10^6/uL (4.5-5.90); Red Cell Distribution Width 14.3 % (11.8-14.3); White Blood Cell 5.6 10^3/uL (4.4-10.8)
--- NOTE | 2024-10-10 17:13 | DVHPN2 ---
Subjective in bed resting Changes from previous H/P or p: No Changes Objective Vitals Vital Signs Date Time Temp Pulse Resp B/P (MAP) Pulse Ox O2 Delivery O2 Flow Rate FiO2 10/10/24 13:00 97.7 67 15 141/74 (96) 97 97.7 10/10/24 08:00 Room Air* 0 21 Intake/Output Intake and Output 10/10/24 07:00 Intake Total 950 ml Balance 950 ml Intake Oral 600 ml IV Total 350 ml # Voids 2 General Appearance: Oriented X3 HEENT: Atraumatic, PERRLA Cardiovascular: Regular rate, Normal S1, Normal S2 Abdomen: Normal bowel sounds Medications Current Medications Medications Dose Ordered Sig/Beth Route Start Time Stop Time Status Last Admin Dose Admin Acetaminophen 650 mg Q6HP PRN PO 10/08/24 21:45 10/10/24 11:11 650 MG Enoxaparin Sodium 40 mg DAILY SC 10/09/24 10:00 10/10/24 09:43 40 MG Ceftriaxone Sodium 50 ml @ 100 mls/hr DAILY@09 IV 10/08/24 21:45 10/10/24 08:52 100 MLS/HR Vancomycin HCl 0 ml @ 0 mls/hr UD IV 10/08/24 21:45 Aspirin 81 mg DAILY PO 10/09/24 10:00 10/10/24 09:43 81 MG Metronidazole 100 ml @ 100 mls/hr Q8HR IV 10/09/24 07:15 10/10/24 14:29 100 MLS/HR Vancomycin HCl 100 ml @ 200 mls/hr Q12H IV 10/09/24 15:00 10/09/24 16:56 200 MLS/HR Laboratory Results Laboratory Tests 10/09/24 04:55 10/10/24 05:46 Urinalysis Test 10/09/24 09:10 Urine Color Light-yellow (Yellow) Urine Clarity Clear (Clear) Urine pH 5.5 (5.0-9.0) Urine Specific [place] 1.022 (1.001-1.035) Urine Protein Negative (Negative) Urine Ketones 1+ (Negative) H Urine Blood Negative /uL (Negative) Urine Nitrite Negative (Negative) Urine Bilirubin Negative (Negative) Urine Urobilinogen Normal mg/dL (Negative) Urine Leukocyte Esterase Negative /uL (Negative) Urine RBC <1 /hpf (0 - 3) Urine Microscopic WBC < 1 /HPF (0-3) Urine Squamous Epithelial Cells Few /hpf (<5) Urine Bacteria None seen /hpf (None Seen) Urine Glucose Normal mg/dL (Normal) Microbiology Microbiology Date/Time Source Procedure Growth Status 10/09/24 05:20 Leg Right Gram Stain - Final Resulted 10/09/24 05:20 Leg Right Wound Culture - Preliminary Resulted 10/08/24 18:52 Blood Blood Culture - Preliminary NO GROWTH AFTER 24 HOURS OF INCUBATION. Resulted Assessment/Plan Assessment/Plan Cellulitis right lower extremity: H/o Wound cultures growing group A strep History of sciatica History of fallMay 2024 DVT ruled out Peripheral arterial disease H/o meth use Admit Vancomycin iv Ceftriaxone iv Wound consult and cultures US arterial negative Plan discussed with: Patient My Orders Orders - TRISTAN SAMSON MD Procedure Category Date Status Time * Manager Database Administration CONS 10/10/24 Transmitted Consult 13:42 Cleanse Wound With AFSHAN 10/10/24 In Process Wound Clean 11:35 * Dietary Consult CONS 10/10/24 Transmitted 17:04 Discharge DISCHARGE 10/10/24 Verified 17:12 Date of Service: October 10, 2024 Billing Provider: TRISTAN SAMSON MD Common Visit Codes: [id number] INP/OBS CARE(HIGH) TRISTAN SAMSON MD October 10, 2024 17:13
[2024-10-11 01:00] VITALS: BP 120/68; PULSE 68; RESP 17; TEMP 97.5; O2SAT 95
[2024-10-11 05:00] VITALS: BP 146/86; PULSE 77; RESP 18; TEMP 97.6; O2SAT 100
[2024-10-11 08:00] VITALS: PULSE 61; RESP 20; O2SAT 97
[2024-10-11 09:09] VITALS: BP 129/75; PULSE 63; RESP 20; TEMP 97.8; O2SAT 97
[2024-10-11] MEDS: ASCORBIC ACID 500 MG TAB PO SCH (09:32)
[2024-10-11] MEDS: MULTIPLE VITAMINS W/ MINERALS TAB PO SCH (09:32)
[2024-10-11] MEDS: Pro-Stat SF 30ml Vanilla PO SCH (09:33)
--- NOTE | 2024-10-11 12:45 | DVHDS2 ---
Discharge Summary Date of Admission October 08, 2024 at 21:39 Date of Discharge: October 10, 2024 Labs/Diagnostic Data: Laboratory Results Test 10/11/24 06:03 10/10/24 05:46 10/09/24 09:10 10/09/24 04:55 Creatinine 0.86 mg/dL (0.700-1.30) Glomerular Filtration Rate Calc 98 mL/min (>90) White Blood Count 5.6 10^3/uL (4.4-10.8) Red Blood Count 4.77 10^6/uL (4.5-5.90) Hemoglobin 14.2 g/dL (13.5-17.5) Hematocrit 41.9 % (41.0-53.0) Mean Corpuscular Volume 87.8 fL (80.0-100.0) Mean Corpuscular Hemoglobin 29.7 pg (28.0-32.0) Mean Corpuscular Hemoglobin Concent 33.9 g/dL (32.0-36.0) Red Cell Distribution Width 14.3 % (11.8-14.3) Platelet Count 246 10^3/uL (140-450) Mean Platelet Volume 7.5 fL (6.9-10.8) Neutrophils (%) (Auto) 43.5 % (37.0-80.0) Lymphocytes (%) (Auto) 34.0 % (10.0-50.0) Monocytes (%) (Auto) 12.9 % (0.0-12.0) Eosinophils (%) (Auto) 9.1 % (0.0-7.0) Basophils (%) (Auto) 0.5 % (0.0-2.0) Neutrophils # (Auto) 2.5 10 ^3/uL (1.6-8.6) Lymphocytes # (Auto) 1.9 10 ^3/uL (0.4-5.4) Monocytes # (Auto) 0.7 10 ^3/uL (0-1.3) Eosinophils # (Auto) 0.5 10 ^3/uL (0-0.8) Basophils # (Auto) 0 10 ^3/uL (0-0.2) Nucleated Red Blood Cells 0.1 % Urine Color Light-yellow (Yellow) Urine Clarity Clear (Clear) Urine pH 5.5 (5.0-9.0) Urine Specific [place] 1.022 (1.001-1.035) Urine Protein Negative (Negative) Urine Ketones 1+ (Negative) Urine Blood Negative /uL (Negative) Urine Nitrite Negative (Negative) Urine Bilirubin Negative (Negative) Urine Urobilinogen Normal mg/dL (Negative) Urine Leukocyte Esterase Negative /uL (Negative) Urine RBC <1 /hpf (0 - 3) Urine Microscopic WBC < 1 /HPF (0-3) Urine Squamous Epithelial Cells Few /hpf (<5) Urine Bacteria None seen /hpf (None Seen) Urine Glucose Normal mg/dL (Normal) Urine Opiates Screen Neg (NEGATIVE) Urine Fentanyl Screen Neg (NEGATIVE) Urine Barbiturates Screen Neg (NEGATIVE) Urine Phencyclidine Screen Neg (NEGATIVE) Urine Amphetamines Screen Neg (NEGATIVE) Urine Benzodiazepines Screen Neg (NEGATIVE) Urine Cocaine Screen Neg (NEGATIVE) Urine Cannabinoids Screen Neg (NEGATIVE) Sodium Level 136 mmol/L (136-145) Potassium Level 3.6 mmol/L (3.5-5.1) Chloride Level 104 mmol/L (98-107) Carbon Dioxide Level 23 mmol/L (20-31) Anion Gap 9 (5-15) Blood Urea Nitrogen 14 mg/dL (9-23) BUN/Creatinine Ratio 11.8 (10.0-20.0) Serum Glucose 125 mg/dL (74-106) Hemoglobin A1c 5.3 % A1C (<5.7) Calcium Level 8.6 mg/dL (8.7-10.4) Total Bilirubin 0.3 mg/dL (0.2-1.0) Aspartate Amino Transferase (AST) 24 U/L (13-40) Alanine Aminotransferase (ALT) 24 U/L (7-40) Alkaline Phosphatase 100 U/L (46-116) Total Protein 6.8 g/dL (5.7-8.2) Albumin 4.0 g/dL (3.2-4.8) Triglycerides Level 84 mg/dL (< 150) Cholesterol Level 150 mg/dL (< 200) LDL Cholesterol 83 mg/dL (< 100) HDL Cholesterol 60 mg/dL (40-59) Thyroid Stimulating Hormone (TSH) 1.35 uIU/mL (0.55-4.78) Other Laboratory Tests 10/11/24 06:03 10/10/24 05:46 10/09/24 04:55 Brief Hx & Hospital Course: 64-year-old male with history of sciatica and methamphetamine use brought in from [facility] for evaluation of a chronic wound on his right lower extremity. Injury reportedly occurred on June 03 after tripping and falling while carrying groceries. Initially managed with IV antibiotics via PICC line and wound care, but the patient reports the lesion has worsened. Seen today by home health nurse who advised ED evaluation due to concern for infection progression. He endorses chronic pain, denies fever, chills, or increased drainage. Noted to have a large anterior tibial lesion with surrounding erythema and induration. Cellulitis improved and wound care recommended outpatietn wound care all cultures negative Condition at Discharge: Good Final Diagnosis/Problems List Cellulitis Discharge Disposition: Home Discharge Instruct/Medications Diet: Regular Activity: No Restrictions, As Tolerated Follow Up/Referral: PCP in 7 days Medications: same home medications Discharge Statement: "Patient was advised to return to the ER or call 911 if any headaches, dizziness, shortness of breath, chest pain, abdominal pain, bleeding, fevers, or worsening of medical condition. Patient was counseled about treatment plan, medications, possible side effects, patientverbalized understanding. All questions were answered to the best of my ability. This discharge took greater then 30 minutes in planning, reviewing documentation, counseling the patient, and discussing with other team members." ASSESSMENT ASSESSMENT Assessment Cellulitis Date of Service: October 11, 2024 Billing Provider: TRISTAN SAMSON MD Common Visit Codes: [id number] DISCH DAY >30min TRISTAN SAMSON MD October 11, 2024 12:45
[2024-10-11 13:00] VITALS: BP 139/70; PULSE 83; RESP 18; TEMP 98.3; O2SAT 97
== END 2024-10-11 16:48 | disposition home or self-care (01) | DRG 383 ==
LOC: ER 17:52 → EDBD 17:52 → OVERFLOW 21:39 → EAST 10-09 19:24
PROVIDERS: ADMIT Hospitalist; ATTEND Hospitalist
DX: L03.115 Cellulitis of right lower limb (principal); I73.9 Peripheral vascular disease, unspecified; B95.0 Streptococcus, group A, as the cause of diseases classified elsewhere; F15.90 Other stimulant use, unspecified, uncomplicated; G89.29 Other chronic pain; M54.30 Sciatica, unspecified side; Z79.899 Other long term (current) drug therapy
CPT/HCPCS: 36415; 73700; 80053; 80061; 80307; 81001; 82565; 83036; 84443; 85025; 87040; 87205; 93925; 93970; G0378; J1885; J3490

== ENCOUNTER → 2024-10-15 | Outpatient (CLI) | payer MEDICAID ==
[~2024-10-15] MED LIST changes: +HYDR-4798 PO
== END | disposition home or self-care (01) ==
LOC: LAB 16:52
PROVIDERS: ATTEND Internal Medicine
DX: S81.801A Unspecified open wound, right lower leg, initial encounter (principal); X58.XXXA Exposure to other specified factors, initial encounter; Y93.89 Activity, other specified; Y92.89 Other specified places as the place of occurrence of the external cause; Y99.8 Other external cause status
CPT/HCPCS: 87077; 87205

== ENCOUNTER 2024-11-13 08:38 | Outpatient (CLI) | payer MEDICAID ==
[2024-11-13 08:50] LABS: Urine Bacteria None Seen /hpf (None Seen)
[2024-11-13 09:12] LABS: Urine Blood Negative /uL (Negative); Urine Clarity Clear (Clear); Urine Color Colorless (Yellow); Urine Protein, UAD Negative (Negative); Urine Specific Gravity 1.004 (1.001-1.035); Urine Squamous Epithelial Cell None Seen /hpf (<5); Urine Urobilinogen Normal (Negative)
[2024-11-13 09:23] LABS: Prostate Specific Antigen 0.64 ng/mL (0.0-4.0)
[2024-11-13 11:54] LABS: Amphetamine Screen, Urine Neg (NEGATIVE); Barbiturate Scree,Urine Neg (NEGATIVE); Benzodiazephine Screen, Urine Neg (NEGATIVE); Cannabinoid Screen, Urine Neg (NEGATIVE); Cocaine Screen, Urine Neg (NEGATIVE); Opiate Scree,Urine Neg (NEGATIVE); Phencyclidine Screen, Urine Neg (NEGATIVE)
== END 2024-11-13 17:00 | disposition home or self-care (01) ==
LOC: LAB 08:38
PROVIDERS: ATTEND Internal Medicine
DX: Z12.5 Encounter for screening for malignant neoplasm of prostate (principal); Z12.11 Encounter for screening for malignant neoplasm of colon; F15.91 Other stimulant use, unspecified, in remission; F10.90 Alcohol use, unspecified, uncomplicated; Z79.899 Other long term (current) drug therapy
CPT/HCPCS: 80307; 81001; 82306; 82607; 84153